=== PATIENT | female | born 1990 | race Caucasian/White ===

== ENCOUNTER 2024-07-12 01:06 | Emergency (ER) | payer OTHER, SELFPAY ==
[2024-07-12 01:18] VITALS: BP 119/78; PULSE 91; RESP 16; TEMP 36.5; O2SAT 96; BMI 23.0
[2024-07-12] MEDS: ONDANSETRON ODT 4 MG TAB PO (02:04)
[2024-07-12] MEDS: 0.9 % SODIUM CHLORIDE 500 ML 500 ML 1000 ML IV (02:04)
--- NOTE | 2024-07-12 02:04 | ED_ITS ---
HPI - General Adult General Chief complaint: Nausea/Vomiting Stated complaint: 5 wks , nauseated Time Seen by Provider: 07/12/24 01:44 Source: patient Mode of arrival: ambulatory Limitations: no limitations History of Present Illness HPI narrative: 33-year-old female presents the ED with 24 hours of nausea vomiting and mild epigastric discomfort. Low-grade fever to 99. Feels slightly chilled. No trauma or injury. Tried using promethazine suppository twice in the last 24 hours but still feels nauseated and is having intermittent vomiting. Does happen to be almost 5 weeks due to IVF. First . Was advised by her gynecology team to come in since she has had vomiting now for 24 hours. She has no major history of abdominal surgery. She had a laparoscopy once for endometriosis inspection but did not have any lysis of adhesions or other major work done. She is not having back pain, hematemesis. Her bowels have been moving normally. There was no bloody stools. She has no dysuria. No gynecological changes. Past medical history is notable for MCAS, and infertility. Reports that her home medications are oral estrogen, topical progesterone, low-dose naltrexone for autoimmune disease and also metformin. Denies any major long-term health problems. ROS is notable for the GI and generalized symptoms as above only, otherwise denies times 12 systems. Related Data Home Medications ?Medication ?Instructions ?Recorded ?Confirmed baby and me 1 pill PO DAILY 07/12/24 07/12/24 cetirizine 10 mg capsule (Zyrtec) 10 mg PO DAILY PRN 07/12/24 07/12/24 famotidine 20 mg tablet 20 mg PO DAILY 07/12/24 07/12/24 metformin 500 mg tablet,extended 1,000 mg PO DAILY 07/12/24 07/12/24 release 24 hr progesterone micronized 200 mg 200 mg PO QPM 07/12/24 07/12/24 capsule Previous Rx's ?Medication ?Instructions ?Recorded ondansetron 4 mg disintegrating 4 mg PO Q6H PRN nausea and 07/12/24 tablet vomiting #20 tabs Allergies Allergy/AdvReac Type Severity Reaction Status Date / Time Penicillins Allergy Mild Verified 07/12/24 02:02 [facility] Medical History (Updated 07/12/24 @ 02:37 by Estrella Godinez MD) Irritable bowel syndrome without diarrhea ?K58.9 - Irritable bowel syndrome, unspecified (ICD-10) 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 - Other specified functional intestinal disorders (ICD-10) Stomach ulcer ?K25.9 - Gastric ulcer, unspecified as acute or chronic, without hemorrhage or perforation (ICD-10) Insulin resistance ?E88.819 - Insulin resistance, unspecified (ICD-10) Hyperandrogenemia ?E28.1 - Androgen excess (ICD-10) Endometriosis determined by laparoscopy ?N80.9 - Endometriosis, unspecified (ICD-10) Asthma ?J45.909 - Unspecified asthma, uncomplicated (ICD-10) Anemia ?D64.9 - Anemia, unspecified (ICD-10) 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 - Mast cell activation, unspecified (ICD-10) Social History Smoking Status: Never smoker Do you use any of these nicotine containing products: None Second hand tobacco smoke exposure: No How often do you have a drink containing alcohol: never AUDIT-C Alcohol total score: 0 Non-prescribed substance use: denies use service: No Exam Const: Vital Signs, click to edit/add: Vital Signs - 24 hr 07/12/24 01:18 Temperature 97.7 F Pulse Rate [Left P ulse Oximeter] 91 Respiratory Rate 16 Blood Pressure [Ri ght Upper Arm] 119/78 Pulse Oximetry 96 Oxygen Delivery Me thod Room Air Documenting provider has reviewed patient's vital signs: yes Common normals: no apparent distress and alert General appearance: well kempt HENMT: Common normals: normocephalic Head and scalp: normocephalic Mouth: oral and palatal mucosa normal Throat: posterior oropharynx normal Eye: Common normals: conjunctivae normal General eye: normal appearance of both eyes Conjunctiva: conjunctiva(e) normal Neck & C-Spine: Common normals: no lymphadenopathy General: normal visual inspection Resp: Common normals: normal respiratory effort, no use of accessory muscles and clear to auscultation bilaterally Effort & inspection: able to speak in complete sentences Auscultation: clear to auscultation bilaterally Cardio: Common normals: regular rate, regular rhythm, S1 normal heart sound, S2 normal heart sound and no murmurs Rate: regular rate Rhythm: regular rh [facility] Heart sounds: S1 normal and S2 normal GI: Common normals: Normal to inspection, nondistended, normoactive bowel so unds present, soft to palpation, non-tender, no hepatosplenomegaly and no masses Palpation: soft and no hepatosplenomegaly Extremity: Common normals: normal to inspection and normal capillary refill Neuro: Sensorium/orientation: alert Speech: speech normal Psych: Appearance: well kempt Attitude: engaged Mood and affect: euthymic mood Insight: insight good Judgement: judgment good Skin: Common normals: no rashes or lesions noted General skin exam: no rashes or lesions noted Course Course ED Course: 24 hours of nausea and vomiting, differential diagnosis most likely gastroenteritis. Cannot exclude, pancreatitis, gallbladder disease, colitis, obstruction, amongst others. But her exam is very reassuring. Counseled patient on options. We both agree that with this early , radiation should be avoided since her exam is reassuring and she and I both feel like this is most likely a case of gastroenteritis. We discussed that illness can increase her chance of miscarriage. We would like to reduce her risk overall. Will give 500 mL of IV fluid. Unfortunately, we are still in IV fluid conservation status due to supply shortage. Will give oral Zofran and oral famotidine. If she tolerates these well, will prescribe a supply for home. Counseled on maintaining oral hydration, slowly advancing diet and typical gastroenteritis advice. Will re-evaluate after medications. Reevaluation(s) Time of Reevaluation #1: 02:50 Reevaluation #1: Patient feeling better after fluid and Zofran. Symptoms most likely consistent with gastroenteritis, we are seeing a lot of this go around in the community. She has not had any diarrhea or return of vomiting here in the ED. discussed pushing fluids. I would recommend that she hold her naltrexone and metformin for a couple of days. Rationale is discussed. She should check in with her OB team tomorrow and update them with how things are going. Alarm symptoms are reviewed that would warrant ED presentation. Prescription for Zofran sent to pharmacy. Risks and benefits of the medication reviewed. Okay to use Tylenol p.r.n. for epigastric discomfort. Okay to continue famotidine. All questions answered, written instructions provided. Vital Signs Vital signs: Initial Vital Signs Temperature 97.7 F 07/12/24 01:18 Temperature Source Temporal Artery Scan 07/12/24 01:18 Pulse Rate 91 07/12/24 01:18 Pulse Rhythm Regular 07/12/24 01:18 Respiratory Rate 16 07/12/24 01:18 Blood Pressure 119/78 07/12/24 01:18 Blood Pressure Mean 91 07/12/24 01:18 Blood Pressure Position Semi-Fowlers 07/12/24 01:18 Pulse Oximetry 96 07/12/24 01:18 Oxygen Delivery Method Room Air 07/12/24 01:18 Vital Signs Temperature 97.7 F 07/12/24 01:18 Pulse Rate 91 07/12/24 01:18 Respiratory Rate 16 07/12/24 01:18 Blood Pressure 119/78 07/12/24 01:18 Pulse Oximetry 96 07/12/24 01:18 Oxygen Delivery Method Room Air 07/12/24 01:18 Temperature 97.7 F 07/12/24 01:18 Pulse Rate 91 07/12/24 01:18 Respiratory Rate 16 07/12/24 01:18 Blood Pressure 119/78 07/12/24 01:18 Pulse Oximetry 96 07/12/24 01:18 Oxygen Delivery Method Room Air 07/12/24 01:18 Medications Administered Medications: Generic Name Dose Route Start Last Admin Trade Name Roney PRN Reason Stop Dose Admin Famotidine 20 mg 07/12/24 01:59 07/12/24 02:05 Famotidine 20 Mg Tablet PO 07/12/24 02:00 Not Given ONCE ONE Sodium Chloride 500 mls @ 1,000 mls/hr 07/12/24 01:59 07/12/24 02:41 0.9 % Sodium Chloride 500 Ml IV 07/12/24 02:28 Infused .Q30M ONE Infusion Ondansetron HCl 4 mg 07/12/24 01:59 07/12/24 02:04 Ondansetron Odt 4 Mg Tab PO 07/12/24 02:00 4 mg ONCE ONE Administration Discharge Plan Discharge Clinical Impression: Gastroenteritis Instructions: Gastroenteritis (DC) Additional Instructions: As we discussed, I do think that your symptoms are consistent with gastroenteritis or the stomach flu. It would be unusual that this would be an early complication but certainly not impossible. I would recommend that you take a couple of days off of the metformin and naltrexone. Naltrexone does have a very long half-life and will stay in your system for a few days. You may continue the suppositories if you find these helpful. I will give you a prescription for Zofran. Try to use this sparingly as we cannot guarantee that any medication is safe in . As we discussed though, dehydration and acute illness are also potentially risky to the . It is my medical opinion that the Zofran is less dangerous than dehydration and acute illness. Continue to push fluids as you are best able. Check in with her gynecology team if things are not improving in 24 hours. High fever, severe pain, bloody stools or other concerning symptoms would warrant emergency room visit. Activity Level: Activity as Tolerated Discharge Diet: Regular Prescriptions: New ondansetron 4 mg tablet,disintegrating 4 mg PO Q6H PRN (Reason: nausea and vomiting) Qty: 20 0RF No Action metformin 500 mg tablet extended release 24 hr 1,000 mg PO DAILY baby and me 1 pill PO DAILY progesterone micronized 200 mg capsule 200 mg PO QPM Zyrtec 10 mg capsule 10 mg PO DAILY PRN famotidine 20 mg tablet 20 mg PO DAILY Follow Up/Referrals: Provider,Not a Local [Primary Care Provider] - Stand Alone Forms: Sw[employer] Info Instructions
--- OUTSIDE RECORDS SUMMARY | 2024-07-12 02:26 | XMS_ITS | Encounter Summary ---
Author Organization [facility] Address [address] [place] [address] Care Team Providers Care Automatic Brine Mixer Operator Name Role Phone Lisa Fortune MD Primary Care Provider Murali Valentin MD Unavailable [phone] Seth Flaherty MD Unavailable [phone] Seth Flaherty MD Unavailable [phone] Lisa Fortune MD Unavailable Seth Flaherty MD Unavailable [phone] Timmy Marrufo CNP Unavailable [phone] Encounter Details Date Type Department Care Team (Late st Contact Info) Description 09/03/2017 [facility] [address] [place] [address] Lisa Fortune MD [address] [place] [address] Social History Tobacco Use Types Packs/Day Years Used Date Smoking Tobacco: Never Smokeless Tobacco: Never Alcohol Use Standard Drinks/Week Comments No 0 (1 standard drink = 0.6 oz pur e alcohol) Comments No Sex and Gender Information Value Date Recorded Sex Assigned at Not on file Legal Sex Female 1:49 PM CDT Gender Identity Not on file Sexual Orientation Not on file documented as of this encounter Plan of Treatment Not on file documented as of this encounter Visit Diagnoses Not on filedocumented in this encounter Care Teams Automatic Brine Mixer Operator Relationship Specialty Start Date End Date Lisa Fortune MD PCP - General Internal Medicine 06/23/16 [place] [address] [place] [address] PCP - Assigned PCP 04/16/18 10/19/18 Murali Valentin MD Neurology 03/11/17 [place] [address] [place] [address] Assigned PCP 04/16/18 02/04/20 Lisa Fortune MD [address] [place] [address] Assigned PCP 02/05/20 07/28/20 [place] [address] [place] [address] Assigned PCP 07/29/20 05/11/21 Timmy Marrufo CNP [address] [place] [address] Nurse Practitioner inseamer 10/29/21 documented as of this encounter
--- OUTSIDE RECORDS SUMMARY | 2024-07-12 02:26 | XMS_ITS | Encounter Summary ---
Author Organization [facility] Address [address] [place] [address] Care Team Providers Care Surface Plate Inspector Name Role Phone Lisa Fortune MD Primary Care Provider Murali Valentin MD Unavailable Seth Flaherty MD Unavailable [phone] Seth Flaherty MD Unavailable [phone] Lisa Fortune MD Unavailable Seth Flaherty MD Unavailable [phone] Timmy Marrufo CNP Unavailable [phone] Encounter Details Date Type Department Care Team (Late st Contact Info) Description 10/05/2017 [facility] Blood and Marrow Transplant Program [address] [address] Gianfranco Blount MD [address] [place] [address] Social History Tobacco Use Types Packs/Day [...] on filedocumented in this encounter Care Teams Surface Plate Inspector Relationship Specialty Start Date End Date Lisa Fortune MD PCP - General Internal Medicine 06/23/16 [place] [address] [place] [address] PCP - Assigned PCP 04/16/18 10/19/18 Murali Valentin MD Neurology 03/11/17 [place] [address] [place] [address] Assigned PCP 04/16/18 02/04/20 Lisa Fortune MD [address] [address] Assigned PCP 02/05/20 07/28/20 [place] [address] [place] [address] Assigned PCP 07/29/20 05/11/21 Timmy Marrufo CNP [address] [place] [address] Nurse Practitioner forging roll operator 10/29/21 documented as of this encounter
--- OUTSIDE RECORDS SUMMARY | 2024-07-12 02:26 | XMS_ITS | Encounter Summary ---
Author Organization [facility] Address [address] [place] [address] Care Team Providers Care Cytotechnologist Supervisor Name Role Phone LogLisa coker MD Primary Care Provider [phone] Gianfranco Blount MD Unavailable Effie Nguyen RN Unavailable [phone] Prabhakar Marino MD Unavailable Murali Valentin MD Unavailable Seth Flaherty MD Unavailable [phone] Seth Flaherty MD Unavailable [phone] Lisa Fortune MD Unavailable Seth Flaherty MD Unavailable [phone] Timmy Marrufo CNP Unavailable [phone] Encounter Details Date Type Department Care Team (Late st Contact Info) Description 02/05/2017 [facility] Blood and Marrow Transplant Program [address] [address] Gianfranco Blount MD [address] [place] [address] Social History Tobacco Use Types Packs/Day Years Used Date Smoking Tobacco: Never Alcohol Use Standard Drinks/Week Comments Not Asked 0 (1 standard drink = 0.6 oz [...] on filedocumented in this encounter Care Teams Cytotechnologist Supervisor Relationship Specialty Start Date End Date Lisa Fortune MD PCP - General Internal Medicine 06/23/16 [place] [address] [place], [place] [id number] PCP - Assigned PCP 04/16/18 10/19/18 Gianfranco Blount MD Consulting Physician Internal Medicine - Hematology 11/14/16 07/01/17 Effie Nguyen, RN Nurse Coordinator Hematology & Oncology 11/14/1607/17 Prabhakar Marino MD [address] [address] Hematology & Oncology 01/14/17 05/17/17 Murali Valentin MD [address] [place] [address] Neurology 03/11/17 [place] [address] [place] [address] Assigned PCP 04/16/18 02/04/20 Lisa Fortune MD [address] [place] [address] [place] [address] Assigned PCP 02/05/20 07/28/20 [place] [address] [place] [address] Assigned PCP 07/29/20 05/11/21 Timmy Marrufo CNP [address] [place] [address] Nurse Practitioner lunchroom mother 10/29/21 documented as of this encounter
--- OUTSIDE RECORDS SUMMARY | 2024-07-12 02:26 | XMS_ITS | Encounter Summary ---
Author Organization [facility] Address [address] [place] [address] Care Team Providers Care Configuration Management Architect Name Role Phone LogLisa coker MD Primary Care Provider [phone] Gianfranco Blount MD Unavailable Effie Nguyen RN Unavailable [phone] Prabhakar Marino MD Unavailable Murali Valentin MD Unavailable Seth Flaherty MD Unavailable [phone] Seth Flaherty MD Unavailable [phone] Lisa Fortune MD Unavailable Seth Flaherty MD Unavailable [phone] Timmy Marrufo CNP Unavailable [phone] Encounter Details Date Type Department Care Team (Late st Contact Info) Description 12/01/2016 [facility] Blood and Marrow Transplant Program [address] [address] Gianfranco Blount MD [address] [place] [address] Social History Tobacco Use Types Packs/Day [...] on filedocumented in this encounter Care Teams Configuration Management Architect Relationship Specialty Start Date End Date Lisa Fortune MD PCP - General Internal Medicine 06/23/16 [place] [address] [place], [place] [id number] PCP - Assigned PCP 04/16/18 10/19/18 Gianfranco Blount MD Consulting Physician Internal Medicine - Hematology 11/14/16 07/01/17 Effie Nguyen, RN Nurse Coordinator Hematology & Oncology 11/14/1607/17 Prabhakar Marino MD [address] [address] Hematology & Oncology 01/14/17 05/17/17 Murali Valentin MD [address] [place] [address] Neurology 03/11/17 [place] [address] [place] [address] Assigned PCP 04/16/18 02/04/20 Lisa Fortune MD [address] [place] [address] [place] [address] Assigned PCP 02/05/20 07/28/20 [place] [address] [place] [address] Assigned PCP 07/29/20 05/11/21 Timmy Marrufo CNP [address] [place] [address] Nurse Practitioner cosmetologist 10/29/21 documented as of this encounter
--- OUTSIDE RECORDS SUMMARY | 2024-07-12 02:26 | XMS_ITS | Encounter Summary ---
Author Organization [facility] Address [address] [place] [address] Care Team Providers Care Green Chain Offbearer Name Role Phone Lisa Fortune MD Primary Care Provider Gianfranco Blount MD Unavailable Effie Nguyen RN Unavailable [phone] Prabhakar Marino MD Unavailable [phone] Murali Valentin MD Unavailable Seth Flaherty MD Unavailable [phone] Seth Flaherty MD Unavailable [phone] Lisa Fortune MD Unavailable Seth Flaherty MD Unavailable [phone] Timmy Marrufo CNP Unavailable [phone] Encounter Details Date Type Department Care Team (Late st Contact Info) Description 04/27/2017 [facility] [address] [address] Lisa Fortune MD [address] [address] Social History Tobacco Use Types Packs/Day [...] on filedocumented in this encounter Care Teams Green Chain Offbearer Relationship Specialty Start Date End Date Lisa Fortune MD PCP - General Internal Medicine 06/23/16 [place] [address] [place], [place] [id number] PCP - Assigned PCP 04/16/18 10/19/18 Gianfranco Blount MD Consulting Physician Internal Medicine - Hematology 11/14/16 07/01/17 Effie Nguyen, RN Nurse Coordinator Hematology & Oncology 11/14/1607/17 Prabhakar Marino MD [address] [place] [address] Hematology & Oncology 01/14/17 05/17/17 Murali Valentin MD [address] [place] [address] Neurology 03/11/17 [place] [address] [place] [address] Assigned PCP 04/16/18 02/04/20 Lisa Fortune MD [address] [address] Assigned PCP 02/05/20 07/28/20 [place] [address] [place] [address] Assigned PCP 07/29/20 05/11/21 Timmy Marrufo, SEBASTIÁN [address] [place] [address] Nurse Practitioner radial saw operator 10/29/21 documented as of this encounter
--- OUTSIDE RECORDS SUMMARY | 2024-07-12 02:26 | XMS_ITS | Encounter Summary ---
Author Organization [facility] Address [address] [place] [address] Care Team Providers Care Stores Assistant Name Role Phone Lisa Fortune MD Primary Care Provider Gianfranco Blount MD Unavailable Effie Nguyen RN Unavailable Prabhakar Marino MD Unavailable [phone] Murali Valentin MD Unavailable [phone] Seth Flaherty MD Unavailable [phone] Seth Flaherty MD Unavailable [phone] Lisa Fortune MD Unavailable Seth Flaherty MD Unavailable [phone] Timmy Marrufo CNP Unavailable [phone] Reason for Visit * Reason Onset Date Comments MyChart Communication 03/20/2017 Encounter Details Date Type Department Care Team (Latest Contact Info) Description 03/20/2017 [facility] [address] [address] Lisa Fortune MD [address] [address] MyChart Communication Social History Tobacco Use Types Packs/Day Years [...] on filedocumented in this encounter Care Teams Stores Assistant Relationship Specialty Start Date End Date Lisa Fortune MD PCP - General Internal Medicine 06/23/16 [place] [address] [place] [address] PCP - Assigned PCP 04/16/18 10/19/18 Gianfranco Blount MD Consulting Physician Internal Medicine - Hematology 11/14/16 07/01/17 Effie Nguyen, RN Nurse Coordinator Hematology & Oncology 11/14/1607/17 Prabhakar Marino MD [address] [place] [address] Hematology & Oncology 01/14/17 05/17/17 Murali Valentin MD [address] [place] [address] Neurology 03/11/17 [place] [address] [place] [address] Assigned PCP 04/16/18 02/04/20 Lisa Fortune MD [address] [address] Assigned PCP 02/05/20 07/28/20 [place] [address] [place] [address] Assigned PCP 07/29/20 05/11/21 Timmy Marrufo CNP [address] [place], [place] [id number] Nurse Practitioner account development executive 10/29/21 documented as of this encounter
--- OUTSIDE RECORDS SUMMARY | 2024-07-12 02:26 | XMS_ITS | Encounter Summary ---
Author Organization [facility] Address [address] [place] [address] Care Team Providers Care Technology Infusion Specialist Name Role Phone Lisa Fortune MD Primary Care Provider [phone] Murali Valentin MD Unavailable [phone] Seth Flaherty MD Unavailable [phone] Seth Flaherty MD Unavailable Lisa Fortune MD Unavailable Seth Flaherty MD Unavailable [phone] Timmy Marrufo CNP Unavailable [phone] Encounter Details Date Type Department Care Team (Late st Contact Info) Description 09/03/2017 [facility] [address] [place] [address] Lisa Fortune MD [address] [place] [address] Social History Tobacco Use Types Packs/Day [...] on filedocumented in this encounter Care Teams Technology Infusion Specialist Relationship Specialty Start Date End Date Lisa Fortune MD PCP - General Internal Medicine 06/23/16 [place] [address] [place] [address] PCP - Assigned PCP 04/16/18 10/19/18 Murali Valentin MD Neurology 03/11/17 [place] [address] [place] [address] Assigned PCP 04/16/18 02/04/20 Lisa Fortune MD [address] [place] [address] Assigned PCP 02/05/20 07/28/20 [place] [address] [place] [address] Assigned PCP 07/29/20 05/11/21 Timmy Marrufo CNP [address] [place] [address] Nurse Practitioner interchange agent 10/29/21 documented as of this encounter
--- OUTSIDE RECORDS SUMMARY | 2024-07-12 02:26 | XMS_ITS | Encounter Summary ---
Author Organization [facility] Address [address] [place] [address] Care Team Providers Care Production Officer Name Role Phone LogLisa coker MD Primary Care Provider Gianfranco Blount MD Unavailable Effie Nguyen RN Unavailable [phone] Prabhakar Marino MD Unavailable Murali Valentin MD Unavailable [phone] Seth Flaherty MD Unavailable [phone] Seth Flaherty MD Unavailable [phone] Lisa Fortune MD Unavailable Seth Flaherty MD Unavailable [phone] Timmy Marrufo CNP Unavailable [phone] Encounter Details Date Type Department Care Team (Late st Contact Info) Description 12/10/2016 [facility] Program [address] [address] Gianfranco Blount MD [address] [place] [address] Social History Tobacco Use Types Packs/Day [...] on filedocumented in this encounter Care Teams Production Officer Relationship Specialty Start Date End Date Lisa Fortune MD PCP - General Internal Medicine 06/23/16 [place] [address] [place], [place] [id number] PCP - Assigned PCP 04/16/18 10/19/18 Gianfranco Blount MD Consulting Physician Internal Medicine - Hematology 11/14/16 07/01/17 Effie Nguyen, RN Nurse Coordinator Hematology & Oncology 11/14/1607/17 Prabhakar Marino MD [address] [address] Hematology & Oncology 01/14/17 05/17/17 Murali Valentin MD [address] [place] [address] Neurology 03/11/17 [place] [address] [place] [address] Assigned PCP 04/16/18 02/04/20 Lisa Fortune MD [address] [place] [address] [place] [address] Assigned PCP 02/05/20 07/28/20 [place] [address] [place] [address] Assigned PCP 07/29/20 05/11/21 Timmy Marrufo CNP [address] [place] [address] Nurse Practitioner lay out helper 10/29/21 documented as of this encounter
--- OUTSIDE RECORDS SUMMARY | 2024-07-12 02:26 | XMS_ITS | Encounter Summary ---
Author Organization [facility] Address [address] [place] [address] Care Team Providers Care [place] Attendant Name Role Phone LogLisa coker MD Primary Care Provider [phone] Gianfranco Blount MD Unavailable [phone] Effie Nguyen RN Unavailable [phone] Prabhakar Marino MD Unavailable Murali Valentin MD Unavailable [phone] Seth Flaherty MD Unavailable [phone] Seth Flaherty MD Unavailable [phone] Lisa Fortune MD Unavailable Seth Flaherty MD Unavailable [phone] Timmy Marrufo CNP Unavailable [phone] Encounter Details Date Type Department Care Team (Late st Contact Info) Description 02/24/2017 [facility] Blood and Marrow Transplant Program [address] [address] Gianfranco Blount MD [address] [place] [address] Social History Tobacco Use Types Packs/Day [...] on filedocumented in this encounter Care Teams [place] Attendant Relationship Specialty Start Date End Date Lisa Fortune MD PCP - General Internal Medicine 06/23/16 [place] [address] [place], [place] [id number] PCP - Assigned PCP 04/16/18 10/19/18 Gianfranco Blount MD Consulting Physician Internal Medicine - Hematology 11/14/16 07/01/17 Effie Nguyen, RN Nurse Coordinator Hematology & Oncology 11/14/1607/17 Prabhakar Marino MD [address] [address] Hematology & Oncology 01/14/17 05/17/17 Murali Valentin MD [address] [place] [address] Neurology 03/11/17 [place] [address] [place] [address] Assigned PCP 04/16/18 02/04/20 Lisa Fortune MD [address] [place] [address] Assigned PCP 02/05/20 07/28/20 [place] [address] [place] [address] Assigned PCP 07/29/20 05/11/21 Timmy Marrufo CNP [address] [place] [address] Nurse Practitioner critical care unit nurse 10/29/21 documented as of this encounter
--- OUTSIDE RECORDS SUMMARY | 2024-07-12 02:26 | XMS_ITS | Encounter Summary ---
Author Organization [facility] Address [address] [place] [address] Care Team Providers Care Ceramic Engineering Professor Name Role Phone Lisa Fortune MD Primary Care Provider Murali Valentin MD Unavailable Seth Flaherty MD Unavailable [phone] Seth Flaherty MD Unavailable [phone] Lisa Fortune MD Unavailable Seth Flaherty MD Unavailable [phone] Timmy Marrufo CNP Unavailable [phone] Encounter Details Date Type Department Care Team (Late st Contact Info) Description 05/03/2018 [facility] Program [address] [address] Gianfranco Blount MD [address] [place] [address] Social History Tobacco Use Types Packs/Day [...] on filedocumented in this encounter Care Teams Ceramic Engineering Professor Relationship Specialty Start Date End Date Lisa Fortune MD PCP - General Internal Medicine 06/23/16 [place] [address] [place] [address] PCP - Assigned PCP 04/16/18 10/19/18 Murali Valentin MD Neurology 03/11/17 [place] [address] [place] [address] Assigned PCP 04/16/18 02/04/20 Lisa Fortune MD [address] [address] Assigned PCP 02/05/20 07/28/20 [place] [address] [place] [address] Assigned PCP 07/29/20 05/11/21 Timmy Marrufo CNP [address] [place] [address] Nurse Practitioner rib builder 10/29/21 documented as of this encounter
--- OUTSIDE RECORDS SUMMARY | 2024-07-12 02:26 | XMS_ITS | Continuity of Care Document ---
Author Organization [facility] Address [address] [address] [place] [address] Phone Care Team Providers Care Bed And Breakfast Cook Name Role Phone Marshal Singer MD Unavailable Unavailable Allergies, Adverse Reactions, Alerts Substance Reaction Status Criticality adhesive tape Rash Active No Information PENICILLIN Rash Active No Information latex Rash Active No Information egg Active No Information lactose Active No Information gluten Active No Information Penicillins Active No Information Medications Medication Instructions Dosage Effective Dates (start - stop) Status Comments nortriptyline 10 mg capsule take 1 Capsule by oral route every bedtime 10 MG - Active Pepcid AC 20 mg tablet take 1 tablet by oral route 2 times every day as needed 20 MG - Active Zyrtec 10 mg tablet take 1 tablet by oral route every day 10 MG - Active cabergoline 0.5 mg tablet take 0.5 tablet by oral route every week 0.25 MG - Active Lotrexone 1.5 mg capsule - Active dicyclomine 10 mg capsule take 1 capsule by oral route 4 times every day as needed. No more than 40 mg per day when . - Active Zofran 4 mg tablet take 1 tablet by ORAL route every 8 hours as needed for nausea 4 MG - Active nortriptyline 10 mg capsule take 1 Capsule by oral route every bedtime 10 MG - No Longer Active Procedures Procedure Date Established Level 3 Established Level 3 Established Level 3 Established Level 3 or 15-24 min 2019 Offic/outpt E&m Estab Low-mod 8 Offic/outpt E&m Estab Mod-hi 4 17 Offic/outpt E&m Estab Mod-hi 4 16 Routine Serum Collection Gg; Iga, Igd, Igg, Igm, Ea Bld Ct; Hgb Medical Nutrition Therapy, subs, each 15 minutes Medical nutrition therapy, initial, each 15 minutes Offic/outpt E&m Estab Mod-hi 4 16 Breath Test Fructose Breath Test Lactose Breath Test Glucose Breath Kit Given Offic/outpt E&m Estab Low-mod 6 Offic/outpt E&m Estab Low-mod 5 Offic/outpt E&m Estab Low-mod 5 Robertson PH Monitor Robertson Placement Routine Serum Collection Bld Ct; Hg/pltlt Ct Auto/compl 15 Comp Metabolic Panel Lipase Offic/outpt E&m Estab Mod-hi 2 15 Ugi Endo; W/bx 1/mx Level Iv-surg Path Gross/micro 15 Advance Directives Directive Yes / No Effective Date File Name No Information Encounters Encounter Description Practice Location Reason(s) For Visit Diagnoses Date Provider Providers Copied on Encounter Established Level 3 [facility], [address] [address], [place], [id number], [place] tel:[phone] [facility] GI Symptoms or Concerns (chief complaint) Irritable bowel syndrome with constipation 4 Enmanuel Araya. [address] [facility], [address], [place], [id number], [place]. tel:[phone] Referring Provider: Referral Self, USE FOR SELF REFERRALS. Established Level 3 [facility], [address] [address], [place], [id number], [place] tel:[phone] [facility] GI Symptoms or Concerns (chief complaint) Irritable bowel syndrome with diarrhea 3 Eunice Howe. [address] [facility], [address], [place], [id number], [place]. tel:[phone] Referring Provider: Referral Self, USE FOR SELF REFERRALS. Established Level 3 [facility], [address] [address], [place], [id number], [place] tel:[phone] [facility] GI Symptoms or Concerns (chief complaint) Irritable bowel syndrome with diarrhea 2 Jalen Velazco. [address] [facility], [address], [place], [id number], [place]. tel:[phone] Referring Provider: Referral Self, USE FOR SELF REFERRALS. [facility], [address] [address], [place], [id number], [place] tel:[phone] [facility] No Information 2 Celestine Mccain. [address] [facility], [address], [place], [id number], [place]. tel:[phone] Established Level 3 or 15-24 min [facility], [address] [address], [place], [id number], [place] tel:[phone] [facility] GI Symptoms or Concerns (chief complaint) Nausea and vomiting, intractability of vomiting not specified, unspecified vomiting typeIrritable bowel syndrome with diarrhea 0 WILFREDorsuzy PAC Mora. [address] [facility], [address], [place], [id number], [place]. tel:[phone] Referring Provider: Referral Self, USE FOR SELF REFERRALS. Offic/outpt E&m Estab Low-mod [facility], [address] [address], [place], [id number], [place] tel:[phone] [facility] GI Symptoms or Concerns (chief complaint) Generalized abdominal painDyspepsiaNause a and vomiting, intractability of vomiting not specified, unspecified vomiting type 8 Jalen Velazco. [address] [facility], [facility] [address], [place], [place], [id number], [place]. tel:[phone] Referring Provider: Lisa Fortune MD, [address] [place] [address], [place], [address]. tel:[phone] Offic/outpt E&m Estab Mod-hi 4 [facility], [address] [address], [place], [place], [id number], [place] tel:[phone] [facility] GI Symptoms or Concerns (chief complaint) Irritable bowel syndrome with constipationDietar y counseling and surveillance 7 Mike Jimenez. [address] [facility], [facility] [address], [place], [address], [place]. tel:[phone] Referring Provider: Referral Self, USE FOR SELF REFERRALS. Offic/outpt E&m Estab Mod-hi 4 [facility], [address] [address], [place], [place], [id number], [place] tel:[phone] [facility] GI Symptoms or Concerns (chief complaint) Abdominal pain, unspecified locationBloatingCo nstipation, unspecified constipation typeDietary counseling and surveillance 6 Mike Jimenez. [address] [facility], [facility] [address], [place], [place], [id number], [place]. tel:[phone] Referring Provider: Referral Self, USE FOR SELF REFERRALS. [facility], [address] [address], [place], [place], [id number], [place] tel:[phone] [facility] Bloating 6 Sheldon Hilario. [address] [facility], [facility] [address], [place], [id number], [place]. tel:[phone] Referring Provider: Estela Panda MD, [address], [place], [address]. tel:[phone] [facility], [address] [address], [place], [place], [id number], [place] tel:[phone] [facility] Bloating 0201 6 Sheldon Hilario. [address] [facility], [address], [place], [place], [id number], [place]. tel:[phone] Referring Provider: Estela Panda MD, [address], [place], [address]. tel:[phone] [facility], [address] [address], [place], [id number], [place] tel:[phone] [facility] Bloating 6201 6 Mike Jimenez. [address] [facility], [facility] [address], [place], [place], [id number], [place]. tel:[phone] Referring Provider: Referral Self, USE FOR SELF REFERRALS. Offic/outpt E&m Estab Mod-hi 4 [facility], [address] [address], [place], [place], [id number], [place] tel:[phone] [facility] GI Symptoms or Concerns (chief complaint) Bloating 4201 6 Mike Jimenez. [address] [facility], [facility] [address], [place], [place], [id number], [place]. tel:[phone] Referring Provider: Estela Panda MD, [address] [facility] [address], [place], [address]. tel:[phone] [facility], [address] [address], [place], [id number], [place] tel:[phone] [facility] Abdominal distension (gaseous) 3-201 6 Rock Wiggins. [address] [facility], [facility] [address], [place], [place], [id number], [place]. tel:[phone] Referring Provider: Referral Self, USE FOR SELF REFERRALS. [facility], [address] [address], [place], [id number], [place] tel:[phone] [facility] Abdominal distension (gaseous) Nov-0 5201 6 Rock [employer]ICER Rosalie. [address] [facility], [address], [place], [place], [id number], [place]. tel:[phone] [facility], [address] [address], [place], [id number], [place] tel:[phone] [facility] Abdominal distension (gaseous) Oct-3 0-201 6 Rock [employer] Rosalie. [address] [facility], [address], [place], [id number], [place]. tel:[phone] [facility], [address] [address], [place], [id number], [place] tel:[phone] [facility] No Information Oct-0 4 6 Rock [employer]ER Rosalie. [address] [facility], [address], [place], [id number], [place]. tel:[phone] Referring Provider: Referral Self, USE FOR SELF REFERRALS. [facility], [address] [address], [place], [id number], [place] tel:[phone] [facility] Bloating Oct-0 3201 6 Rock [employer] Rosalie. [address] [facility], [address], [place], [address], [place]. tel:[phone] Referring Provider: Referral Self, USE FOR SELF REFERRALS. Offic/outpt E&m Estab Low-mod [facility], [address] [address], [place], [id number], [place] tel:[phone] [facility] GI Symptoms or Concerns (chief complaint) DyspepsiaIrritable bowel syndrome with diarrhea 6 Rock [employer]ER Rosalie. [address] [facility], [address], [place], [place], [id number], [place]. tel:[phone] Referring Provider: Estela Panda MD, [address], [place], [address]. tel:[phone] Offic/outpt E&m Estab Low-mod [facility], [address] [address], [place], [address], [place] tel:[phone] [facility] GI Symptoms or Concerns (chief complaint) Epigastric painDyspepsia 5 Rock Wiggins. [address] [facility], [address], [place], [id number], [place]. tel:[phone] Referring Provider: Estela Panda MD, [address], [place], [address]. tel:[phone] Offic/outpt E&m Estab Low-mod [facility], [address] [address], [place], [id number], [place] tel:[phone] [facility] GI Symptoms or Concerns (chief complaint) HeartburnAbd Pain GeneralizedDiarrhe a 5 Rock Wiggins. [address] [facility], [address], [place], [place], [id number], [place]. tel:[phone] Referring Provider: Estela Panda MD, [address] [facility] [address], [place], [address]. tel:[phone] [facility], [address] [address], [place], [id number], [place] tel:[phone] [facility] No Information 5 Pernell Neff. [address] [facility], [address], [place], [place], [address], [place]. tel:[phone] [facility], [address] [address], [place], [address], [place] tel:[phone] [facility] No Information 5 Vicente Chávez. [address] [facility], [address], [place], [place], [address], [place]. tel:[phone] Referring Provider: Estela Panda MD, [address] [facility] [address], [place], [address]. tel:[phone] [facility], [address] [address], [place], [id number], [place] tel:[phone] [facility] No Information 5 Clotilde Becker. [address] [facility], [facility] [address], [place], [id number], [place]. tel:[phone] Referring Provider: Estela Panda MD, [facility] [facility] [address], [place], [address]. tel:[phone] Offic/outpt E&m Estab Mod-hi 2 [facility], [address] [address], [place], [id number], [place] tel:[phone] [facility] GI Symptoms or Concerns (chief complaint) HeartburnNausea 5 Clotilde Becker. [address] [facility], [facility] [address], [place], [id number], [place]. tel:[phone] Referring Provider: Referral Self, USE FOR SELF REFERRALS. [facility], [address] [address], [place], [id number], [place] tel:[phone] [facility] HeartburnHeartburn GERD 5 Clotilde Becker. [facility], [facility] [address], [place], [id number], [place]. tel:[phone] Referring Provider: Referral Self, USE FOR SELF REFERRALS. Family History Family Member Type Diagnosis Age At Onset Father Problem (finding) peptic ulceration Brother Problem (finding) Alive and well Father Problem (finding) Thyroid disorder Sister Problem (finding) Alive and well Mother Problem (finding) Alive and well Immunizations Vaccine Date Status Comments tetanus toxoid, reduced diphtheria toxoid, and acellular pertussis vaccine, adsorbed administered Note: [facility] bi-direct ional interface ; Source: Other Registry Afluria Qd administered Note: M [facility] bi-directional interface ; Source: Other Registry Influenza, injectable, quadrivalent, preservative free, 3 yrs or older administered Source: Other Provi aleyda Influenza virus vaccine, injectable, quadrivalent, split virus, preservative free, 3 years or older Fluarix Quad administered Source: Other Provid er Afluria Qd administered Note: M [facility] bi-directional interface ; Source: Other Registry Influenza virus vaccine, injectable, quadrivalent, split virus, preservative free, 3 years or older Fluarix, Flulaval or Fluzone Quad administered Note: Invalid docume nted admin date was . ; Source: Other Provider Afluria Qd administered Note: [facility] bi-directional interface ; Source: Other Registry Influenza, seasonal, injectable administe red Note: [facility] bi- directional interface ; Source: Other Registry tetanus toxoid, reduced diphtheria toxoid, and acellular pertussis vaccine, adsorbed administered Note: [facility] bi-direct ional interface ; Source: Other Registry Payers Payer name Insurance type Covered alliance party ID Authoriza tion(s) No Information Social History Type Description Quantity Date Captured Comments Alcohol Use Details Unknown Caffeine Use Details Unknown Tobacco Use Status No Information Smoking Status undefined Sex Female Vital Signs Date / Time: Height Weight BMI Pulse Rate Blood Pressure Temperature Respiratory Rate Body Surface Area Head Circumference Head Circ. Percentile Wt./Ruben. Percentile BMI percentile Pulse Ox Inhaled Ox 1:52 PM 62.00 in 64.864 kg (143.00 lbs) 26.1 5 kg/m eter (2) Chief Complaint And Reason For Visit From encounter dated '12/25/2023 13:52'. GI Symptoms or Concerns (chief complaint). Description: Flaca consented to a virtual visit. We were alone on the line together. We spoke for 10 min and I spent an additional 10 min reviewing med records and coordinating care. The level of clinical decision making was moderate.Flaca is a 33-year-old woman with history of irritable bowel syndrome, functional dyspepsia, nausea and vomiting who Ihad a follow-up video visit with today for ongoing management of her symptoms. She reports that overall she is doing pretty well. She continues to take nortriptyline 10 milligrams at bedtime and thatdoes a good job of controlling symptoms for the most part. She has tried stopping it in the past on several occasions and had symptoms return. Paradoxically she get's constipated off of nortriptyline and on it she can make 2-4 BMs per day and feels well.Will be starting metforming and is onnaltrexone for diffuse inflammationInterested in stopping nortriptyline again andasks how to do that. Reason For Referral Reason For Referral No Information Plan Of Treatment Date Type Action Status Goal Lifestyle education regardin g diet completed Goal Lifestyle education regardin g diet completed Referral Ordered: follow-up visit with family counselor ordered Referral Ordered: referred to [facility] Dyspepsia associated w anxiety Appointment date/timeframe: 07/18/2015 ordered Referral Ordered: Ultrasound Abdomen Appointment date/timeframe: 02/05/2015 ordered History Of Present Illness Encounter Date Complaint History Of Prese nt Illness GI Symptoms or Concerns Flaca consented to a virtual visit. We were alone on the line together. We spoke for 10 min and I spent an additional 10 min reviewing med records and coordinating care. The level of clinical decision making was moderate.Flaca is a 33-year-old woman with history of irritable bowel syndrome, functional dyspepsia, nausea and vomiting who I had a follow-up video visit with today for ongoing management of her symptoms. She reports that overall she is doing pretty well. She continues to take nortriptyline 10 milligrams at bedtime and that does a good job of controlling symptoms for the most part. She has tried stopping it in the past on several occasions and had symptoms return. Paradoxically she get's constipated off of nortriptyline and on it she can make 2-4 BMs per day and feels well.Will be starting metforming and is on naltrexone for diffuse inflammationInterested in stopping nortriptyline again and asks how to do that. GI Symptoms or Concerns Flaca is a 32-year-old woman with history of irritable bowel syndrome, functional dyspepsia, nausea and vomiting who I had a follow-up video visit with today for ongoing management of her symptoms. She reports that overall she is doing pretty well. She continues to take nortriptyline 10 milligrams at bedtime and that does a good job of controlling symptoms for the most part. She did try going off of it last year after seeing us in clinic however she notes that pain became worse and she developed constipation symptoms and so resumed it. With this, she generally has 3-4 formed stools per day. Unfortunately, she reports that she was having some lower GI symptoms characterized by bloating in the recent past but she was also having a miscarriage at that time. Those symptoms did resolve after her miscarriage. GI Symptoms or Concerns Flaca Mckenzie is a pleasant 31-year-old female with history of irritable bowel syndrome with predominant diarrhea, functional dyspepsia, nausea, and vomiting, who presents today in followup.The patient was last seen in June 2020. At that time, she had been recovering from COVID and had significant GI symptoms along with her COVID infection. This included abdominal pain, nausea, vomiting, and diarrhea. She was started on nortriptyline 10 mg after her visit in June 2020. The patient reports that since that time she has remarkably had no GI symptoms. She denies any nausea or vomiting. No abdominal pain. She is having regular bowel movements approximately 1 to 2 bowel movements per day. She notes no symptoms for almost 2 years.She is hoping to become in the coming months. She was speaking with her RECONCILIATION COORDINATOR and they were discussing if nortriptyline could be stopped.The patient's GI history includes an upper endoscopy in 2014, which was normal. Unremark GI Symptoms or Concerns Flaca Mckenzie is a 29-year-old female with medical history of irritable bowel syndrome, functional dyspepsia, nausea and vomiting, and abdominal pain, who is following up in clinic for evaluation of nausea, vomiting, and abdominal pain.The patient was last seen in 2017. At that time, she had these exact similar symptoms and has been struggling with them for the past 7 to 8 years. The patient tells me that she was diagnosed with COVID-19 two weeks ago. When she had COVID, she developed a fever, chills, abdominal pain, nausea, vomiting, and diarrhea. She has been slowly recovering over the past 2 weeks. She notes that she is now able to eat food and stay better hydrated. Her bowel movements are now formed. She, however, is still struggling with some nausea, primarily in the mornings. Fortunately, she is able to eat smaller meals throughout the day. 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 At that time, she had these exact similar symptoms and has been struggling with them for the past 7 to 8 years. The patient tells me that she was diagnosed with COVID-19 two weeks ago. When she had COVID, she developed a fever, chills, abdominal pain, nausea, vomiting, and diarrhea. She has been slowly recovering over the past 2 weeks. She notes that she is now able to eat food and stay better hydrated. Her bowel movements are now formed. She, however, is still struggling with some nausea, primarily in the mornings. Fortunately, she is able to eat smaller meals throughout the day. 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 in 2014. She has had some form of GI symptoms over the past 5 years. She reports today that she has abdominal pain throughout her abdomen. Occasionally, this will focus on her epigastric area. She sites that nausea comes on in the mornings with few episodes of vomiting. This then resolves and she is able to make it through her day as well as eating meals without any symptoms of nausea or vomiting. Her abdominal pain are fairly chronically. In the past, she has struggled with constipation. She was even on Linzess at one time, but cited that Linzess caused her stool to be too loose. She is not currently using any GI medicines. She says she was u GI Symptoms or Concerns Flaca Richards is a 26-year-old female who presents to the [facility] for ongoing management of functional dyspepsia, constipation, and bloating. She is currently taking Benefiber three times daily. Miralax at night and Benefiber in the morning. She has also eliminated sugar from her diet. She uses dicyclomine before lunch, dinner, and bedtime which seems to have helped a lot too. She is having bowel movements daily, but continues to have some feelings of incomplete evacuation. She has tried to increase the dicyclomine before breakfast as well which she feels has caused increased abdominal cramping. When seen in the clinic on 06/12/2016, she was describing her quality of life 4 out of 10 that was before dicyclomine, now a 6 out of 10. Our goal is an 8 out of 10. Amitriptyline has been increased to 100 mg per day. She continues to follow with Psychiatry at [facility]. She is on BuSpar 50 mg three times daily as well. She feels that her anxiety is doing well. Prior to dicyclomine, she was also having vomiting every other day.She does report previously being diagnosed with celiac disease and follows a gluten free diet. She also follows a low FODMAP diet and has met with a dietitian. She has been gaining weight. She works out frequently and feels her bloating is worse the day after exercise. Hemoglobin, IgA and celiac panel were all checked when she was seen in the clinic on 06/17/2016 which were all within acceptable ranges. 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 She reports some bloating and gas with milk. She had a positive glucose breath test and has been treated with rifaximin three times with minimal change in her symptoms. EGD in January of 2015 was normal aside from patulous GE junction. Esophageal biopsies were normal. Abdominal ultrasound in January of 2015 was normal. Robertson pH studies in February of 2015 was normal. Previous use of Gas-X which caused nausea and vomiting. She inquires about increasing the dicyclomine and the MiraLax since these two seemed to be helping, but still with some incomplete evacuation. GI Symptoms or Concerns Flaca is a 25year old female with a history of functional dyspepsia, constipation and bloating presenting for follow up. She is currently taking Benefiber three times daily, Miralax one capful daily, and amitryptiline 75mg. She reports that he dyspepsia has completely resolved. Her bloating has been very troublesome for her and is worse with stress and before bedtime. It is relieved with passing gas, but takes a long time to do so. She reports hr quality of life at 4/10 with a goal of 8/10. She has about 3 formed bowel movements per day, often with straining. Usually towards the end of the day she feels like there is inadequate emptying. She denies any diarrhea, nausea, vomiting, abdominal pain, weight loss, or hematochezia. She does endorse black tarry stools about weekly.She does report previously diagnosed Celiac disease and follows a gluten free diet. She also follows a low FODMAP diet and has met with a family counselor. She works out frequently and feels that her bloating is worsened the day after exercise.She follows with a psychiatrist at [facility] and feels that her anxiety is well controlled. She is on Busbar 15mg three times daily.She has had breath testing with negative lactose and fructose testing. She reported more bloating and gas with milk though. she had a positive glucose breath test and has been treated with rifaximin 3 times with minimal change in symptoms. EGD on 01/2015 was normal aside from a subjectively patulous GE junction. Esophageal biopsies were normal. Abdominal ultrasound 01/2015 was normal. Robertson pH study 02/2015 was normal. She has been on dicyclomine and levsin without change. She has tried Gas X which caused nausea and vomiting.PETER Foster-Amelia patientwas seen in conjunction with Catherine Mckeon NP GI Symptoms or Concerns This is a 25-year-old woman who returns to clinic for followup regarding irritable bowel syndrome with symptoms of nausea and bloating. She has a long history of intermittent burning epigastric and chest pain as well as nausea and vomiting. Her symptoms are clearly exacerbated with stress. She has alternating bowel pattern between constipation and diarrhea.Symptoms have slowly been improving with antidepressant therapy. she has been under the care of psychiatry recently. Prozac was stopped. she has been on amitriptyline with recent increase in dose to 75 mg at bedtime and buspar. she is having less abdominal discomfort and nausea with vomiting has resolved. she recently underwent breath testing with negative lactose and fructose testing. she reports more bloating and gas with milk though. she had a positive glucose breath test and started on rifaximin with no change in symptoms. bowel movements are every day most daily with small to normal size stools. the bloating improves with bowel movement. she still has problems when she lies down for bed, she will have to sit up to [facility]. January 2015 EGD was normal aside from a subjectively patulous GE junction. Esophageal biopsies were normal. January 2015 abdominal ultrasound was normal. February 2015 Robertson pH study was normal. she has been on dicyclomine and levsin without change. She has been following with [facility] for acupuncture, which helps minimally. Her primary provider also recently referred her to a psychiatrist for further medication management.She is on a strict gluten-free diet. She feels her diet is very high in fiber, and she is not taking a fiber supplement. GI Symptoms or Concerns This is a 24-year-old woman who returns to clinic for followup regarding irritable bowel syndrome. She was last seen in clinic in May 2015, at which time she was doing well. She has a long history of intermittent burning epigastric and chest pain as well as nausea and vomiting. Her symptoms are clearly exacerbated with stress. She has alternating bowel pattern between constipation and diarrhea.January 2015 EGD was normal aside from a subjectively patulous GE junction. Esophageal biopsies were normal. January 2015 abdominal ultrasound was normal. February 2015 Robertson pH study was normal. She was then started on amitriptyline 25 mg daily, which was increased to 50 mg daily. Prior trials of Levsin helped with fecal urgency and loose stools, but not as much with her abdominal pain.She was started on Prozac last fall, which initially did help with her GI symptoms. This was causing a rapid heart rate, and the dose was decreased to 10 mg in July 2015. She has been able to hector GI Symptoms or Concerns This is a 24-year old woman who returns to clinic for followup regarding dyspepsia. She has a history of intermittent burning epigastric and chest pain as well as nausea and vomiting dating back since she was a asndra in high school. Symptoms tend to be worse with stress. She has alternating bowel pattern between constipation and diarrhea. Her GI symptoms are strongly correlated with increased stress and anxiety.Previous GI workup has included EGD in January 2015, which was normal aside from a subjectively patulous GE junction. Esophageal biopsies were normal. January 2015 abdominal ultrasound was normal. February 2015 Robertson pH study was normal. She was started on amitriptyline 25 mg once daily and then the dose was increased to 50 mg daily. She has also been tried on Levsin which has helped with fecal urgency and loose stools, but not as much with abdominal pain. Her primary provider started her on Prozac about one month ago, which has been helpful overall with her GI symptoms. GI Symptoms or Concerns This is a 24-year-old woman who returns to clinic for followup.She has a history of intermittent burning abdominal and chest pain as well as nausea and vomiting dating back since she was a sandra in high school. She describes generalized abdominal pain that radiates up into her chest. She has had problems with nausea and intermittent vomiting. The bowel pattern has alternated between constipation and diarrhea, though most of the time she reports loose stools. She has a strong association with increase in GI symptoms with increased stress and anxiety.She was referred for EGD, which was done on 01/15/2015. This exam was normal aside from a subjectively patulous GE junction. Esophageal biopsies were normal. Abdominal ultrasound done in January was normal. She then had Robertson pH study, which was normal. She was started on amitriptyline 25 mg once daily in January. This was helpful for the first two weeks, during which time she had no GI symptoms. Around the third week, she start GI Symptoms or Concerns This you ng woman is seen today for heartburn and intermittent nausea and vomiting. This has been a problem for her going back until she was a sandra in high school. She frequently gets a burning sensation in her chest that radiates all the way up in the back of her throat. She occasionally gets nauseous especially at night. Sometime she can have some vomiting associated with this. She denies significant diarrhea though does have some loose stools on occasion. Triggers for her symptoms include spicy foods and acidic foods. She denies any dysphagia.She has tried Prilosec and she takes 20 mg b.i.d. She gets some sweating and fever and sometimes it makes her symptoms worse. She has tried Zantac and four years ago was on Prevacid.Notably stress tends to be a trigger for her symptoms on a regular occasion. When she is under stress, all of her symptoms are worse. Functional Status Date Functional Assessmen t No Information Instructions Date Instruction Additional Infor keo -Will refill nortrip tyline, but OK to try taper off. Instructions given.Follow up as neededRed flag symptoms reviewed. Related to Irritable bowel syndrome with constipation I will send in a yea r supply of the nortriptyline 10 milligrams at bedtime. I will also send in a prescription for dicyclomine. You can take 10 milligrams up to 4 times per day as needed for severe abdominal pains. During , you should limit the dose to no more than 40 milligrams in a day. If you do not respond to the 10 milligram dose, you can take up to 20 milligrams at a time. Follow-up with Mora Rao in 1 year. Related to Irritable bowel syndrome with diarrhea Increase miralax to one capful daily on , , thu, thu. Two capfuls thu, thu, thu. You can adjust for bowel regulation. Increase dicyclomine to 20 mg before lunch dinner and bedtime. CAll if tolerating and I will send in a prescription for a 20 mg tabletContinue follow up with psychiatry on buspar and amitriptyline. CAll with questions or concerns. continue low sugar diet. Related to Irritable bowel syndrome with constipation Lifestyle education regarding di et Related to Dietary counseling and surveillance Increase Miralax to 1 capful Thursday, , Thursday and Thursday. Two capfuls Thursday, Thursday, Thursday . If needed increase to two capfuls daily. Continue the Benefiber dailyBuspar 15 mg three times daily, Amitriptyline 75 mg dailyIf still with problems after two weeks would bowel cleanse and start Linzess 145 mcg. Call me with symptom update or if you do not tolerate higher doses. Continue gluten free diet. Related to Abdominal pain, unspecified location Lifestyle education regarding di et Related to Dietary counseling and surveillance start a fiber supple ment daily such as benefiber or citrucelstart miralax every other day, increase to daily if able. if stools too loose then decrease to two times per week. if constipation symptoms occur or bloating worsens after starting the miralax that means you are really constipated. take a bottle of magnesium citrate and resume miralax. continue buspar and amitriptyline as you are. dietary fiber of 20 to 25 g per dayfollow up with family counselor if ongoing symptoms. complete rifaximin. if symptoms return off the rifaximin then call and i will retreat. 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 Patient Care Teams Name Effective Dates (start - stop) Status Members No Information
--- OUTSIDE RECORDS SUMMARY | 2024-07-12 02:26 | XMS_ITS | Encounter Summary ---
Author Organization [facility] Address [address] [place] [address] Care Team Providers Care Electronic Gluing Machine Operator Name Role Phone LogLisa coker MD Primary Care Provider Gianfranco Blount MD Unavailable Effie Nguyen RN Unavailable [phone] Prabhakar Marino MD Unavailable Murali Valentin MD Unavailable [phone] Seth Flaherty MD Unavailable [phone] Seth Flaherty MD Unavailable [phone] Lisa Fortune MD Unavailable Seth Flaherty MD Unavailable [phone] Timmy Marrufo CNP Unavailable [phone] Encounter Details Date Type Department Care Team (Late st Contact Info) Description 04/20/2017 [facility] Mar[facility] Trans[facility] [address] [address] Gianfranco Blount MD [address] [place] [address] Social History Tobacco Use Types Packs/Day [...] on filedocumented in this encounter Care Teams Electronic Gluing Machine Operator Relationship Specialty Start Date End Date Lisa Fortune MD PCP - General Internal Medicine 06/23/16 [place] [address] [place], [place] [id number] PCP - Assigned PCP 04/16/18 10/19/18 Gianfranco Blount MD Consulting Physician Internal Medicine - Hematology 11/14/16 07/01/17 Effie Nguyen, RN Nurse Coordinator Hematology & Oncology 11/14/1607/17 Prabhakar Marino MD [address] [place] [address] Hematology & Oncology 01/14/17 05/17/17 Murali Valentin MD [address] [address] Neurology 03/11/17 [place] [address] [place] [address] Assigned PCP 04/16/18 02/04/20 Lisa Fortune MD [address] [address] Assigned PCP 02/05/20 07/28/20 [place] [address] [place] [address] Assigned PCP 07/29/20 05/11/21 Timmy Marrufo, [place]BAST[place]N [address] [place] [address] Nurse Practitioner valve steamer 10/29/21 documented as of this encounter
--- OUTSIDE RECORDS SUMMARY | 2024-07-12 02:26 | XMS_ITS | Encounter Summary ---
Author Organization [facility] Address [address] [place] [address] Care Team Providers Care Eyelet Punch Operator Name Role Phone Lisa Fortune MD Primary Care Provider Gianfranco Blount MD Unavailable [phone] Effie Nguyen RN Unavailable [phone] Prabhakar Marino MD Unavailable [phone] Murali Valentin MD Unavailable Seth Flaherty MD Unavailable [phone] Seth Flaherty MD Unavailable [phone] Lisa Fortune MD Unavailable Seth Flaherty MD Unavailable [phone] Timmy Marrufo CNP Unavailable [phone] Encounter Details Date Type Department Care Team (Late st Contact Info) Description 02/12/2017 [facility] [address] [address] Lisa Fortune MD [address] [address] Social History Tobacco Use Types [...] on filedocumented in this encounter Care Teams Eyelet Punch Operator Relationship Specialty Start Date End Date Lisa Fortune MD PCP - General Internal Medicine 06/23/16 [place] [address] [place], [place] [id number] PCP - Assigned PCP 04/16/18 10/19/18 Gianfranco Blount MD Consulting Physician Internal Medicine - Hematology 11/14/16 07/01/17 Effie Nguyen, RN Nurse Coordinator Hematology & Oncology 11/14/1607/17 Prabhakar Marino MD [address] [address] Hematology & Oncology 01/14/17 05/17/17 Murali Valentin MD [address] [address] Neurology 03/11/17 [place] [address] [place] [address] Assigned PCP 04/16/18 02/04/20 Lisa Fortune MD [address] [place] [address] Assigned PCP 02/05/20 07/28/20 [place] [address] [place] [address] Assigned PCP 07/29/20 05/11/21 Timmy Marrufo CNP [address] [place] [address] Nurse Practitioner senior quality analyst 10/29/21 documented as of this encounter
--- OUTSIDE RECORDS SUMMARY | 2024-07-12 02:26 | XMS_ITS | Encounter Summary ---
Author Organization [facility] Address [address] [place] [address] Care Team Providers Care Shingle Carrier Name Role Phone Lisa Fortune MD Primary Care Provider Gianfranco Blount MD Unavailable Effie Nguyen RN Unavailable Prabhakar Marino MD Unavailable Murali Valentin MD Unavailable [phone] Seth Flaherty MD Unavailable [phone] Seth Flaherty MD Unavailable [phone] Lisa Fortune MD Unavailable Seth Flaherty MD Unavailable [phone] Timmy Marrufo CNP Unavailable [phone] Reason for Visit * Reason Onset Date Comments MyChart Communication 04/09/2017 Encounter Details Date Type Department Care Team (Latest Contact Info) Description 04/09/2017 [facility] Primary [facility] Clinic [address] [address] Lisa Fortune MD [address] [address] MyChart Communication Social History Tobacco [...] on filedocumented in this encounter Care Teams Shingle Carrier Relationship Specialty Start Date End Date Lisa Fortune MD PCP - General Internal Medicine 06/23/16 [place] [address] [place] [address] PCP - Assigned PCP 04/16/18 10/19/18 Gianfranco Blount MD Consulting Physician Internal Medicine - Hematology 11/14/16 07/01/17 Effie Nguyen, RN Nurse Coordinator Hematology & Oncology 11/14/1607/17 Prabhakar Marino MD [address] [place] [address] Hematology & Oncology 01/14/17 05/17/17 Murali Valentin MD [address] [place] [address] Neurology 03/11/17 [place] [address] [place] [address] Assigned PCP 04/16/18 02/04/20 Lisa Fortune MD [address] [address] Assigned PCP 02/05/20 07/28/20 [place] [address] [place] [address] Assigned PCP 07/29/20 05/11/21 Timmy Marrufo CNP [address] [place], [place] [id number] Nurse Practitioner forestry farm laborer 10/29/21 documented as of this encounter
--- OUTSIDE RECORDS SUMMARY | 2024-07-12 02:26 | XMS_ITS | Clinical Summary ---
Author Organization [facility] Address [address] [place] [address] Care Team Providers Care Store Deli Manager Name Role Phone LogeaLisa rosales MD Primary Care Provider [phone] Murali Valentin MD Unavailable [phone] Timmy Marrufo CNP Unavailable [phone] Allergies Active Allergy Reactions Criticality Noted Date Comments Chicken-Derived Products (Egg) Nausea and Vomiting Medium 03/10/2017 Fish Oil GI Disturbance 01/14/2017 Latex Rash Medium 02/11/2017 No Clinical Screening - See Comments Other (See Comments) Low 05/05/2017 Other reaction(s): Runny Nose Penicillins Hives High 06/23/2016 Medications Probiotic Product (PROBIOTIC DAILY PO)Indications:I riley deficiency anemia due to chronic blood loss,Mild persistent asthma without complication Take by mouth daily Active ascorbic acid (VITAMIN C) 1000 MG TABSIndications: Chronic fatigue,Depressi on with anxiety,Celiac disease,Irritabl e bowel syndrome with both constipation and diarrhea,Persist ent disorder of initiating or maintaining sleep Take 1 tablet (1,000 mg) by mouth daily 30 tablet 7 Active cetirizine (ZYRTEC) 10 MG tabletIndication s:Mild persistent asthma without complication TAKE ONE TABLET BY MOUTH ONE TIME DAILY IN THE EVENING 30 tablet 7 Active LORazepam (ATIVAN) 0.5 MG tablet Take one tid prn 7 Active montelukast (SINGULAIR) 10 MG tablet Take 10 mg by mouth At Bedtime 7 Active EPINEPHrine (EPIPEN/ADRENACL ICK/OR ANY BX GENERIC EQUIV) 0.3 MG/0.3ML injection 2-packIndication s:Sensation of swollen throat Inject 0.3 mLs (0.3 mg) into the muscle as needed for anaphylaxis 0.6 mL 1 7 Active NALTREXONE HCL PO Take 3 mg by mouth At Bedtime Active cromolyn (INTAL) 20 MG/2ML neb solution Take 20 mg by nebulization 4 times daily Active cromolyn (GASTROCROM) 100 MG/5ML (HIGH CONC) solution Take 100 mg by mouth 4 times daily (before meals and nightly) Active QUERCETIN PO Active ranitidine (ZANTAC) 150 MG tablet Take 150 mg by mouth daily Active ketotifen (ZADITOR/REFRESH ANTI-ITCH) 0.025 % SOLN ophthalmic solution Place 1 drop into both eyes 2 times daily Active fish oil-omega-3 fatty acids 1000 MG capsule Take 1 g by mouth daily Active Ketotifen Fumarate POWD Take by mouth every evening Active ondansetron (ZOFRAN-ODT) 4 MG ODT tabIndications:I ntractable vomiting with nausea, unspecified vomiting type Take 1 tablet (4 mg) by mouth every 6 hours as needed for nausea or vomiting 60 tablet 8 Active prochlorperazine (COMPAZINE) 10 MG tabletIndication s:Intractable vomiting with nausea, unspecified vomiting type Take 1 tablet (10 mg) by mouth every 6 hours as needed for vomiting 30 tablet 8 Active pantoprazole (PROTONIX) 40 MG EC tabletIndication s:Intractable vomiting with nausea, unspecified vomiting type Take 1 tablet (40 mg) by mouth daily Take 30-60 minutes before a meal. 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 Dysphonia 06/27/2017 Paradoxical vocal fold motion disorder 7 Asthma 11/14/2016 Iron deficiency anemia due to chronic blood loss 11/14/2016 Resolved Problems Problem Noted Date Diagnosed Date Resolved Date Intractable nausea and vomiting 05/03/2018 05/04/2018 Immunizations Name Administration Dates Next Due HPV 09/15/2016 Influenza Vaccine >6 months,quad, PF 06/2016,04/19/2015,05/22/2014, 007 TDAP Vaccine (Boostrix) 09/15/2016,08/17/2006 Family History Medical History Relation Comments Hypothyroidism Father Brain Cancer Maternal Grandmother Brain Cancer Paternal Grandmother Relation Status Comments Father Maternal Grandmother Paternal Grandmother Social History Tobacco Use Types Packs/Day Years Used Date Smoking Tobacco: Never Smokeless Tobacco: Never Tobacco Cessation:Counseling Given: Not Answered Alcohol Use Standard Drinks/Week Comments No 0 (1 standard drink = 0.6 oz pur e alcohol) PHQ-2 Answer Date Recorded PHQ-2 Score 2 08/25/2018 Adolescent Education Answer Date Record ed Getting School Help Needed Not on file 05/08 Comments No Sex and Gender Information Value Date Recorded Sex Assigned at Not on file Legal Sex Female 1:49 PM CDT Gender Identity Not on file Sexual Orientation Not on file Last Filed Vital Signs Vital Sign Reading Time Taken Comments Blood Pressure 91/55 03/04/2023 2:00 PM CDT Pulse 89 03/04/2023 2:00 PM CDT Temperature 36.1 C (96.9 F) 03/04/2023 1:35 PM CDT Respiratory Rate 16 03/04/2023 2:00 PM CDT Oxygen Saturation 99% 03/04/2023 2:00 PM CDT Inhaled Oxygen Concentration - - Weight 70.3 kg (155 lb) 02/27/2023 3:17 PM CDT Height 157.5 cm (5' 2) 02/27/2023 3:17 PM CDT Body Mass Index 28.35 02/27/2023 3:17 PM CDT Plan of Treatment Health Maintenance Due Date Last Done Comments ADVANCE CARE PLANNING 1990 ANNUAL REVIEW OF HM ORDERS 1990 ASTHMA ACTION PLAN 1990 ASTHMA CONTROL TEST 1990 YEARLY PREVENTIVE VISIT 1990 Pneumococcal Vaccine: Pediatrics (0 to 5 Years) and At-Risk Patients (6 to 64 Years) (1 of 2 - PCV) 1996 HIV SCREENING 2005 HEPATITIS B IMMUNIZATION (1 of 3 - 19+ 3-dose series) 2009 HPV IMMUNIZATION (2 - 3-dose series) 10/13/2016 09/15/2016, 09/15/2016, 09/15/2016 PAP 04/03/2020 04/03/2017, 04/03/2017 PHQ-2 (once per calendar year) 2023 11/06/2017 COVID-19 Vaccine (1 - 2023- season) 2024 INFLUENZA VACCINE (#1) 2024 6, 04/19/2015, 05/22/2014, Additional history exists DTAP/TDAP/TD IMMUNIZATION (3 - Td or Tdap) 09/15/2026 09/15/2016, 08/17/2006 RSV VACCINE (1 - 1-dose 75+ series) 2065 HEPATITIS C SCREENING Completed 10/24/2016 MENINGITIS IMMUNIZATION Aged Out No l onger eligible based on patient's age to complete this topic RSV MONOCLONAL ANTIBODY Aged Out No l onger eligible based on patient's age to complete this topic Procedures Procedure Name Priority Date/Time Associated Diagnosis Comments PAP SMEAR - HIM PATIENT REPORTED Routine 04/03/2017 HEPATITIS C ([facility] EXTERNAL RESULT) Routine 10/24/2016 from Last 3 Months or Most Recently Relevant to Health Maintenance Results * PAP Smear - HIM Patient Reported (04/03/2017) PAP Smear - HIM Patient Reported Negative 04/03/2017 us Patient Reported LABORATORY Final Result * Hep C - HIM (10/24/2016) Hep C HIM See Scanned Document [facility] [facility] 10/24/2016 Narrative [facility] [employer] [facility] - 10/24/2016 LAB RESULT [facility] us Provider Outside LAB - HIM EXTERNAL RESULT Final Result [facility] [place] [address], [facility] [phone] from Last 3 Months or Most Recently Relevant to Health Maintenance Advance Directives For more information, please contact: [phone] * Full Code (Latest Code Status on File) Date Activated Date Inactivated Comments 05/03/2018 2:09 PM 05/04/2018 9:07 PM Care Teams Store Deli Manager Relationship Specialty Start Date End Date Lisa Forutne MD PCP - General Internal Medicine 06/23/16 Murali Valentin MD Neurology 03/11/17 Timmy Marrufo CNP [address] [place] [address] Nurse Practitioner client onboarding analyst 10/29/21
--- OUTSIDE RECORDS SUMMARY | 2024-07-12 02:26 | XMS_ITS | Encounter Summary ---
Author Organization [facility] Address [address] [place] [address] Care Team Providers Care Search Optimization Analyst Name Role Phone LogeaLisa rosales MD Primary Care Provider [phone] Gianfranco Blount MD Unavailable Effie Nguyen RN Unavailable [phone] Murali Valentin MD Unavailable Seth Flaherty MD Unavailable [phone] Seth Flaherty MD Unavailable [phone] Lisa Fortune MD Unavailable Seth Flaherty MD Unavailable [phone] Timmy Marrufo CNP Unavailable [phone] Encounter Details Date Type Department Care Team (Late st Contact Info) Description 06/27/2017 [facility] Blood and Marrow Transplant Program [address] [address] Gianfranco Blount MD [address] [place] [address] Social History Tobacco Use Types Packs/Day [...] on filedocumented in this encounter Care Teams Search Optimization Analyst Relationship Specialty Start Date End Date Lisa Fortune MD PCP - General Internal Medicine 06/23/16 [place] [address] [place], [place] [id number] PCP - Assigned PCP 04/16/18 10/19/18 Gianfranco Blount MD Consulting Physician Internal Medicine - Hematology 11/14/16 07/01/17 Effie Nguyen, RN Nurse Coordinator Hematology & Oncology 11/14/1607/17 Murali Valentin MD Neurology 03/11/17 [place] [address] [place] [address] Assigned PCP 04/16/18 02/04/20 Lisa Fortune MD [address] [address] Assigned PCP 02/05/20 07/28/20 [place] [address] [place] [address] Assigned PCP 07/29/20 05/11/21 Timmy Marrufo CNP [address] [place] [address] Nurse Practitioner contract design agent 10/29/21 documented as of this encounter
--- OUTSIDE RECORDS SUMMARY | 2024-07-12 02:26 | XMS_ITS | Encounter Summary ---
Author Organization [facility] Address [address] [place] [address] Care Team Providers Care Security Team Lead Name Role Phone Lisa Fortune MD Primary Care Provider [phone] Murali Valentin MD Unavailable Seth Flaherty MD Unavailable [phone] Seth Flaherty MD Unavailable [phone] Lisa Fortune MD Unavailable Seth Flaherty MD Unavailable [phone] Timmy Marrufo CNP Unavailable [phone] Encounter Details Date Type Department Care Team (Late st Contact Info) Description 05/02/2018 [facility] Blood and Marrow Transplant Program [address] [address] Gianfranco Blount MD [address] [place] [address] Social History Tobacco Use Types Packs/Day [...] on filedocumented in this encounter Care Teams Security Team Lead Relationship Specialty Start Date End Date Lisa Fortune MD PCP - General Internal Medicine 06/23/16 [place] [address] [place] [address] PCP - Assigned PCP 04/16/18 10/19/18 Murali Valentin MD Neurology 03/11/17 [place] [address] [place] [address] Assigned PCP 04/16/18 02/04/20 Lisa Fortune MD [address] [address] Assigned PCP 02/05/20 07/28/20 [place] [address] [place] [address] Assigned PCP 07/29/20 05/11/21 Timmy Marrufo CNP [address] [place] [address] Nurse Practitioner pumping station engineer 10/29/21 documented as of this encounter
--- OUTSIDE RECORDS SUMMARY | 2024-07-12 02:26 | XMS_ITS | Encounter Summary ---
Author Organization [facility] Address [address] [place] [address] Care Team Providers Care Lumber Piler Operator Name Role Phone Lisa Fortune MD Primary Care Provider [phone] Murali Valentin MD Unavailable [phone] Seth Flaherty MD Unavailable [phone] Seth Flaherty MD Unavailable [phone] Lisa Fortune MD Unavailable Seth Flaherty MD Unavailable [phone] Timmy Marrufo CNP Unavailable [phone] Reason for Referral * Consultation - Closed Specialty Diagnoses / Procedures Referred By Contac t Referred To Contact Diagnoses Chest tightness Uncomplicated asthma, unspecified asthma severity, unspecified whether persistent Lisa Fortune MD [address] [address] Phone: tel: fax: Referral ID Status Reason Start Date Expiration Date Visits Re quested Visits Authorized [id number] Closed 09/22/2017 09/22/2018 1 1 Comments Your provider has referred you to: [facility]: [facility] [email or web address] Please be aware that coverage of these services is subject to the terms and limitations of your health insurance plan. Call member services at your health plan with any benefit or coverage questions. Please bring the following with you to your appointment: (1) Any X-Rays, CTs or MRIs which have been performed. Contact the facility where they were done to arrange for picker packer prior to your scheduled appointment. (2) List of current medications (3) This referral request (4) Any documents/labs given to you for this referral SUPERVISOR Encounter Details Date Type Department Care Team (Late st Contact Info) Description 09/21/2017 [facility] Advice [facility] Primary Care Clinic [address] [place] [address] Lisa Fortune MD [address] [address] Chest tightness (Primary Dx); Uncomplicated asthma, unspecified asthma severity, unspecified whether persistent Social History Tobacco Use Types Packs/Day Years [...] on file documented as of this encounter Miscellaneous Notes * Telephone Encounter - Lisa Fortune MD - 09/22/2017 2:37 PM GANG SUPERVISOR I placed referrals for PFTs and pulmonary consult. If she needs more urgent attention would recommend PCC appt. Thanks, Lisa Fortune MD Internal Medicine SUPERVISOR documented in this encounter Plan of Treatment Scheduled Referrals Name Type Priority Associated Diagnoses Orde r Schedule PULMONARY MEDICINE REFERRAL Referral Routine Chest tightness Uncomplicated asthma, unspecified asthma severity, unspecified whether persistent Ordered: 09/22/2017 documented as of this encounter Visit Diagnoses Diagnosis Chest tightness- Primary Other chest pain Uncomplicated asthma, unspecified asthma severity, unspecified whether persistent documented in this encounter Care Teams Lumber Piler Operator Relationship Specialty Start Date End Date Lisa Fortune MD PCP - General Internal Medicine 06/23/16 [place] [address] [place] [address] PCP - Assigned PCP 04/16/18 10/19/18 Murali Valentin MD Neurology 03/11/17 [place] [address] [place] [address] Assigned PCP 04/16/18 02/04/20 Lisa Fortune MD [address] [place] [address] Assigned PCP 02/05/20 07/28/20 [place] [address] [place] [address] Assigned PCP 07/29/20 05/11/21 Timmy Marrufo CNP [address] [facility] [address] Nurse Practitioner migratory worker 10/29/21 documented as of this encounter
--- OUTSIDE RECORDS SUMMARY | 2024-07-12 02:26 | XMS_ITS | Encounter Summary ---
Author Organization [facility] Address [address] [place] [address] Care Team Providers Care Sales Branch Manager Name Role Phone Lisa Fortune MD Primary Care Provider Gianfranco Blount MD Unavailable Effie Nguyen RN Unavailable [phone] Prabhakar Marino MD Unavailable [phone] Murali Valentin MD Unavailable Seth Flaherty MD Unavailable [phone] Seth Flaherty MD Unavailable [phone] Lisa Fortune MD Unavailable Seth Flaherty MD Unavailable [phone] Timmy Marrufo CNP Unavailable [phone] Encounter Details Date Type Department Care Team (Late st Contact Info) Description 10/21/2016 [facility] Primary Care Clinic [address] [address] Lisa Fortune MD [address] [address] Social History Tobacco Use Types [...] on filedocumented in this encounter Care Teams Sales Branch Manager Relationship Specialty Start Date End Date Lisa Fortune MD PCP - General Internal Medicine 06/23/16 [place] [address] [place], [place] [id number] PCP - Assigned PCP 04/16/18 10/19/18 Gianfranco Blount MD Consulting Physician Internal Medicine - Hematology 11/14/16 07/01/17 Effie Nguyen, RN Nurse Coordinator Hematology & Oncology 11/14/1607/17 Prabhakar Marino MD [address] [address] Hematology & Oncology 01/14/17 05/17/17 Murali Valentin MD [address] [address] Neurology 03/11/17 [place] [address] [place] [address] Assigned PCP 04/16/18 02/04/20 Lisa Fortune MD [address] [place] [address] Assigned PCP 02/05/20 07/28/20 [place] [address] [place] [address] Assigned PCP 07/29/20 05/11/21 Timmy Marrufo CNP [address] [place] [address] Nurse Practitioner sand conditioner 10/29/21 documented as of this encounter
--- OUTSIDE RECORDS SUMMARY | 2024-07-12 02:26 | XMS_ITS | Referral Summary ---
Author Organization [facility] Address [address] [place] [address] Care Team Providers Care Roller Setter Name Role Phone LogeaLisa rosales MD Primary Care Provider [phone] Murali Valentin MD Unavailable [phone] Timmy Marrufo CNP Unavailable [phone] Allergies Active Allergy Reactions Criticality Noted [...] PF 06/2016,04/19/2015,05/22/2014, 007 TDAP Vaccine (Boostrix) 09/15/2016,08/17/2006 Social History Tobacco Use Types Packs/Day Years [...] 02/27/2023 3:17 PM CDT Plan of Treatment Not on file Procedures Procedure Name Priority Date/Time Associated Diagnosis Comments PAP SMEAR - HIM PATIENT REPORTED Routine 04/03/2017 HEPATITIS C ([facility] EXTERNAL RESULT) Routine 10/24/2016 from Last 3 Months or Most Recently Relevant to Health Maintenance Results * PAP Smear - HIM Patient Reported (04/03/2017) PAP Smear - HIM Patient Reported Negative 04/03/2017 us Patient Reported LABORATORY Final Result * Hep C - HIM (10/24/2016) Hep C HIM See Scanned Document [facility] 10/24/2016 Narrative [facility] - 10/24/2016 LAB RESULT [facility] us Provider Outside LAB - HIM EXTERNAL RESULT Final Result [facility] [address] [facility] [phone] from Last 3 Months or Most Recently Relevant to Health Maintenance Advance Directives For more information, please contact: [phone] * Full Code (Latest Code Status on File) Date Activated Date Inactivated Comments 05/03/2018 2:09 PM 05/04/2018 9:07 PM Care Teams Roller Setter Relationship Specialty Start Date End Date Lisa Fortune MD PCP - General Internal Medicine 06/23/16 Murali Valentin MD Neurology 03/11/17 Timmy Marrufo CNP [address] [address] Nurse Practitioner dental assistant medical assistant 10/29/21
--- OUTSIDE RECORDS SUMMARY | 2024-07-12 02:26 | XMS_ITS | Encounter Summary ---
Author Organization [facility] Address [address] [place] [address] Care Team Providers Care Appeals Reviewer Veteran Name Role Phone Lisa Fortune MD Primary Care Provider [phone] Murali Valentin MD Unavailable Seth Flaherty MD Unavailable [phone] Seth Flaherty MD Unavailable [phone] Lisa Fortune MD Unavailable Seth Flaherty MD Unavailable [phone] Timmy Marrufo CNP Unavailable [phone] Encounter Details Date Type Department Care Team (Late st Contact Info) Description 02/03/2018 [facility] Blood and Marrow Transplant Program [address] [address] Gianfranco Blount MD [address] [place] [address] Social History Tobacco Use Types Packs/Day [...] on filedocumented in this encounter Care Teams Appeals Reviewer Veteran Relationship Specialty Start Date End Date Lisa Fortune MD PCP - General Internal Medicine 06/23/16 [place] [address] [place] [address] PCP - Assigned PCP 04/16/18 10/19/18 Murali Valentin MD Neurology 03/11/17 [place] [address] [place] [address] Assigned PCP 04/16/18 02/04/20 Lisa Fortune MD [address] [address] Assigned PCP 02/05/20 07/28/20 [place] [address] [place] [address] Assigned PCP 07/29/20 05/11/21 Timmy Marrufo CNP [address] [place] [address] Nurse Practitioner potato chip sacking machine operator 10/29/21 documented as of this encounter
--- OUTSIDE RECORDS SUMMARY | 2024-07-12 02:26 | XMS_ITS | Encounter Summary ---
Author Organization [facility] Address [address] [place] [address] Care Team Providers Care Chief Informatics Officer Name Role Phone Lisa Fortune MD Primary Care Provider Gianfranco Blount MD Unavailable Effie Nguyen RN Unavailable [phone] Prabhakar Marino MD Unavailable Murali Valentin MD Unavailable Seth Flaherty MD Unavailable [phone] Seth Flaherty MD Unavailable [phone] Lisa Fortune MD Unavailable Seth Flaherty MD Unavailable [phone] Timmy Marrufo CNP Unavailable [phone] Encounter Details Date Type Department Care Team (Late st Contact Info) Description 10/26/2016 [facility] Primary Care Clinic [address] [address] Lisa Fortune MD [address] [address] Social History Tobacco Use Types [...] on filedocumented in this encounter Care Teams Chief Informatics Officer Relationship Specialty Start Date End Date Lisa Fortune MD PCP - General Internal Medicine 06/23/16 [place] [address] [place], [place] [id number] PCP - Assigned PCP 04/16/18 10/19/18 Gianfranco Blount MD Consulting Physician Internal Medicine - Hematology 11/14/16 07/01/17 Effie Nguyen, RN Nurse Coordinator Hematology & Oncology 11/14/1607/17 Parbhakar Marino MD [address] [address] Hematology & Oncology 01/14/17 05/17/17 Murali Valentin MD [address] [address] Neurology 03/11/17 [place] [address] [place] [address] Assigned PCP 04/16/18 02/04/20 Lisa Fortune MD [address] [place] [address] Assigned PCP 02/05/20 07/28/20 [place] [address] [place] [address] Assigned PCP 07/29/20 05/11/21 Timmy Marrufo CNP [address] [place] [address] Nurse Practitioner manager audit 10/29/21 documented as of this encounter
--- OUTSIDE RECORDS SUMMARY | 2024-07-12 02:27 | XMS_ITS | Data Portability ---
Author Organization [facility] [employer], [id number] [place] Address [address] [place] [address] [address] [place] [address] Assessment Encounter Date Assessment Date Assessment LastModified by Organization Details LastModified Time 06/16/2022 06/16/2022 total face to face and non face to face time spent by myself on this encounter was 30 minutes. [email or web address] Not available 06/16/2022 12:04:50 Plan of Treatment Reminders Order Date Submit Date Provider Last Modified By Organization Details Last Modified Time Details Appointments None record ed. Lab None record ed. Referral None record ed. Procedures None record ed. Surgeries None record ed. Imaging None record ed. Medication Orders None record ed. Patient TargetsNo targets recorded. Patient Instructions Encounter Date Encounter Id Patient Instructions Last Modified By Organization Details Last Modified Time 06/16/2022 [id number] reviewed fertili ty workup and treatment to date. She appears to have unexplained infertility and has done 7 cycles of letrozole. She has family history of endometriosis but does not have painful menses herself. I reviewed that laparoscopy is only indicated for pain and does not improve fertility outcome in the absence of endometriomas. I reviewed that at this point I recommend a MARIANNE consult to consider IVF and I do not recommend a laparoscopy at this point. She will follow up with MARIANNE now. [email or web address] Not available 06/16/2022 12:05:02 Reason for Referral None Reported. Procedures Surgical History Date Name Laterality Status Provider Name and Address Organization Details Recorded Time 02/25/2022 Date of Last Pap Smear completed Christiane Maharaj [place] [employer] 06/16/2022 08:49:49 Imaging Results None recorded. Procedure Notes None recorded. Medical Equipment None Reported. Allergies Allergen ID Allergen Name Allergen Category Reaction Reaction Severity Criticality Documentation Date Start Date Code Code System Note Provider Name and Address Organization Details Recorded Time 441827 Medicinal product containin g penicilli n and acting as antibacte rial agent (product) medicatio n Not available Not available Not available 06/16/2022 99039 05 SNOMED Christiane estradaTAYLOR [employer] 2 08:52:37 Medications Name Sig Start Date Stop Date Status Note LastModified by Organization Details LastModified Time nortriptyline 10 mg capsule take 1 Capsule by oral route every bedtime active Not Available Not Available No t Available progesterone micronized 200 mg capsule as directed Orally Twice a day 12 days active Not Available Not Available No t Available letrozole 2.5 mg tablet TAKE 2 tablets BY MOUTH ON Days 3-7 of cycle. 5 days active Not Available Not Available No t Available Ovidrel 250 mcg/0.5 mL subcutaneous syringe INJECT 1 SYRINGE UNDER THE SKIN ONCE IN THE ABDOMEN active Not Available Not Available No t Available Vitals Date Recorded Body weight Body mass index (BMI) Body height Systolic blood pressure Diastolic blood pressure Provider Name and Address Organization Details Last Updated DateTime 06/16/2022 29949.59 g 28.4 kg/m2 158.75 cm 110 mm[Hg] 60 mm[Hg] Christiane Maharaj TAYLOR Mendoza [employer] 2 08:52:28 Social History Question Answer Notes LastModified by Organizat ion Details LastModified Time Tobacco Smoking Status Never Smoker Christiane estrada TAYLOR Godfrey Mendoza [employer] 06/16/2022 08:50:01 Do You Have An Advance Directive? No [email or web address] Information not available 06/16/2022 What Is Your Level Of Alcohol Consumption? None Information not available 06/16/2022 If You Are , What Was Your Level Of Alcohol Consumption Prior To ? None [email or web address] Information not available 06/16/2022 Are You Currently Sexually Active With Anyone Who Has Traveled (within The Last 12 Weeks) To A Zika-affected Area? No [email or web address] Information not available 06/16/2022 Are You Blind Or Do You Have Difficulty Seeing? No [email or web address] Information not available 06/16/2022 Is Blood Transfusion Acceptable In An Emergency? Yes Information not available 06/16/2022 What Is Your Level Of Caffeine Consumption? None [email or web address] Information not available 06/16/2022 How Much Tobacco Do You Chew? None [email or web address] Information not available 06/16/2022 Are You Currently Employed? Yes Information not available 06/16/2022 Are You Deaf Or Do You Have Serious Difficulty Hearing? No Information not available 06/16/2022 What Type Of Diet Are You Following? GLUTENFREE [email or web address] Information not available 06/16/2022 Which Illicit Or Recreational Drugs Have You Used? None [email or web address] Information not available 06/16/2022 Do You Or Have You Ever Used E-cigarettes Or Vape? Never Used Electronic Cigarettes Information not available 06/16/2022 What Is The Highest Grade Or Level Of School You Have Completed Or The Highest Degree You Have Received? 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 No [email or web address] Information not available 06/16/2022 [facility] [email or web address] Informat ion not available 06/16/2022 History Of Domestic Violence No [email or web address] Information no t available 06/16/2022 Spouse/Partners Name Geoff Information not available 06/16/2022 What Was The Date Of Your Most Recent Tobacco Screening? 06/16/2022 Information not available 06/16/2022 What Is Your Relationship Status? Information not available 06/16/2022 Do You Use Your Seat Belt Or Car Seat Routinely? Yes [email or web address] Information not available 06/16/2022 Do You Or Have You Ever Used Smokeless Tobacco? Never Used Smokeless Tobacco [email or web address] Information not available 06/16/2022 How Much Tobacco Do You Smoke? No [email or web address] Information not available 06/16/2022 Do You Feel Stressed (tense, Restless, Nervous, Or Anxious, Or Unable To Sleep At Night)? [id number] [email or web address] Information not available 06/16/2022 Has Tobacco Cessation Counseling Been Provided? No Information not available 06/16/2022 How Many Years Have You Smoked Tobacco? 0 Information not available 06/16/2022 Do You Or Have You Ever Used Any Other Forms Of Tobacco Or Nicotine? No [email or web address] Information not available 06/16/2022 Sex: Unknown Functional Status Question Answer Note LastModified by Organizat ion Details LastModified Time Do you have difficulty walking or climbing stairs? No [email or web address] Information not available 06/16/2022 Do you have difficulty doing errands alone? No [email or web address] Information not available 06/16/2022 Do you have difficulty dressing or bathing? No Information not available 06/16/2022 What is your exercise level? Moderate Information not available 06/16/2022 Mental Status Question Answer Note LastModified by Organization D etails LastModified Time Do you have difficulty concentrating, remembering or making decisions? No [email or web address] Information no t available 06/16/2022 Family History Relationship Description Onset Age of this Age Resolved Age Notes LastModified by Organization Details LastModified Time Father Hypercholest erolemia [email or web address] Not available 2021 08:49:25 Father Hypertensive disorder Not available 2021 08:49:25 Medical History Condition Response Dermatology-Acne Y Hematology- Anemia Y GI- Irritable Bowel Syndrome Y Pulmonary- Asthma Y Gynecological History Statement/Question Response History of Vulvar Dysplasia N HPV Test Not Applicable Date of LMP 06/04/2022 History of Cervical Dysplasia N Sexual Orientation Heterosexual History of Infertility Y Sexually Active Y Age at first intercourse 26 History of PCOS N History of Endometriosis N History of Abnormal PAP N History of Recurrent Ovarian Cysts Y Total lifetime partners Less than 5 Seeking 13 Date of Last Pelvic Ultrasound Age at Menarche: 13 History of Sexually Transmitted Infectio n N Y HPV Vaccine Complete Current Control Method None History of Fibroids N Date of Last Pap Smear 02/25/2022 Obstetrics History GPAL:G 0 P 0 0 0 0 Type Value Multiple Births 0 Full Term 0 Induced 0 Spontaneous 0 Premature 0 Living 0 Ectopics 0 Total 0 Immunizations Vaccine Type Date Status Provider Name and Address Organization Details Recorded Time Tdap 01/27/2017 completed TAYLOR Jacobs [employer] 06/16/2022 08:50:05 Past Encounters Encounter ID Performer Location Encounter Start Date Encounter Closed Date Diagnosis/Indication Diagnosis SNOMED-CT Code Diagnosis ICD10 Code [id number] KAMRON NESBITT MD [id number] GOGO_MARGIE VELAZQUEZ [address] [facility] [address] [place] [address] 06/16/2022 08:46:45 06/16/2022 09:57:34 Female infertility 1213337 N97.9 Health Concerns Section Related Observation LastModified by Organization Detai ls LastModified Time None Recorded Concern Status LastModified by Organization Details LastModified Time None Recorded Advance Directives Directive N: Payers Encounter Date Sequence Insurance Name Policy Number Policy Sarah Covered Member ID Sarah Member ID Guarantor Name 06/16/2022 1 [employer] (PPO) [id number] Flaca Mckenzie [id number] Flaca Mckenzie Notes Date Note Type Note Provider Name and Address Organization Details Recorded Time 06/16/2022 text/html Patient is a {{ 31 #}} year old G{{ 0#}} P{{ 0#}}, LMP {{ 06/04/22#}}, who presents with the inability to conceive. She has not conceived despite having unprotected sexual intercourse for {{ 1.5#}} {{years* months}}. She discontinued contraception {{ 1.5#}} {{months years*}} ago. She has had a previous work up for infertility. She has had a work up at [facility]:labs done 2DHEA Sulfate: 453--then they ordered a CT scan that was normal but small pulmonary nodule--she has been referred to pulmonaryCortisol 9.6TPO antibodies--neg/normal TSH 1.05day 3 labs: FSH 4.7 estradiol 26 prolactin 13.7total test 18AMH 2.05 She reports HSG in Apr 2022 (no records to review)--both tubes were open she did 7 cycles of letrozole and 3 of them had IUI. The cycles were monitored by ultrasound--she normally made 1-2 follicle and she responded well. She only used ovidrel 2 of the cycles. she reports normal SA. {{The patient has not had any previous pregnancies* history notable for}}. Menses are {{regular* irregular}} and occur every {{ 28-31#}} days with {{ 3-4#}} days of {{light moderate heavy *}} flow. Denies dysmenorrhea or pelvic pain. OPKs {{consistently turn positive* have not turned positive}}. Her past medical history is IBS and anemia and on an vegan iron supplement. She has history of mild asthma--does not need treatment. BMI is {{ 28.4#}}. {{Denies history of STIs* History of}}. She {{denies tobacco and marijuana use* admits to}}. She states she {{has received the MMR vaccine* is unsure of her rubella status}} and {{has had the chicken pox has received the varicella vaccine*}}. She has not had the COVID vaccine. She declines the flu shot--she is allergic to eggs. No pertinent genetic family history. Her partner is {{ 30#}} years old. His medical history is {{non-contributory* no table for}}. {{He does not use tobacco or marijuanna* He admits to using}}. He {{has not fathered children in the past* has fathered}}. He has not had a semen analysis. He is a social workerShe is chiropractor assistantThey live [place] she denies any abnl hair growth she reports a family [place] [address] [facility],[address], [place], [address], [facility] [employer] 06/16/2022 12:05:11 OBGyn Episode No OBEpisode recorded.
--- OUTSIDE RECORDS SUMMARY | 2024-07-12 02:27 | XMS_ITS | Patient Health Record ---
Author Organization [facility] Address [address] [place] [address] Care Team Providers Care Radiation Physicist Name Role Phone Qasim Saira Primary Care Provider Jess Stover Unavailable [phone] Timmy Marrufo Unavailable [phone] Dee Dee Drummond Unavailable Allergies Allergen (clinical drug ingredient) Drug/Non Drug Allergy documented on EMR Reaction Allergy Type Onset Date Status Penicillin Unknown Drug Allergy Active Reason For Referral Reason MHFV^4.1 Diagnosis 1 Elevated DHEA (E27.8 ) Referral Organization [facility] Referring Provider First Name Dee Dee Referring Provider Last Name Lizet Doll er Referring Provider 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 I would like to refer her to endocrine, an material handling technician. Isac ALCALA Katelyn 11/10/2023 11:56:57 AM CDT > Referral made and faxed to [facility]: Radha using [phone] for phone and [phone] for fax.Beatrice Andrea 11/16/2023 01:34:49 PM >Referral there nothing lexus.Beatrice Andrea 11/25/2023 08:49:49 AM >M[facility]V Stated that they have been unable to schedule PT after several attempts- PT can call and [facility]. when she would like Referral Priority Routine Medications Medication SIG (Take, Route, Frequency, Duration) Notes Start Date End Date Status Nortriptyline HCl Ac tive Vitamin D Active Pepcid Active Chromium Not-Taking ZyrTEC Active Ovidrel 250 MCG/0.5ML as directed Subcutaneous Active Active DIM Not-Taking Cabergoline 0.5 MG 1 tablet Orally Active Folate Not-Taking Probiotic Active Iron Not-Taking Naltrexone Active L-Glutamic Acid Not- Taking Detox Active Magnesium Active Progesterone 200 MG 1 capsule at bedtime Orally Once a day for 30 days 06/16/2023 Not-Taking Vitamin C Active Social History Tobacco Use: Social History Observation Description Date Details (start date - stop date) Never Smoker NA - NA Tobacco Use/Smoking Question Answer Notes Are you a nonsmoker Alcohol Screen (Audit-C) Question Answer Notes Did you have a drink containing alcohol in the p ast year? No Points 0 Interpretation Negative Problems Problem Type SNOMED Code ICD Code Onset Dates Problem Status W/U Status Risk Notes Problem Female infertility associated with anovulation (140850326) Female infertility associated with anovulation (N97.0) Active confirmed Problem Abnormal weight gain (356247166) Abnormal weight gain (R63.5) Active confirmed Problem 071326353 Solitary pulmona ry nodule (R91.1) Active confirmed Problem 461324632 Infertility, anovulation (N97.0) Active confirmed Problem 8518666 Female infertili ty (N97.9) Active confirmed Problem 396454628 High-tone pelvic floor dysfunction (N94.89) Active confirmed Problem 480433029 Dysmenorrhea (N94.6) Active confirmed Problem Pain in female genitalia on intercourse (03414461) Dyspareunia in female (N94.10) Active confirmed Problem Anovulation (56051088) Anovulation (N97.0) Activ e confirmed Problem 367363213 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) Active confirmed Problem Dehydroepiandrostero ne sulfate level (389898524) Elevated DHEA (E27.8) Active confirmed Problem Congenital hypothyroidism screening test (098275164) Screening for hypothyroidism (Z13.29) Active confirmed Vital Signs Blood pressure diastolic 70 mm Hg 11/13/2023 Height 62 in 11/13/2023 Blood pressure systolic 128 mm Hg 11/13/2023 Weight 148.2 lbs 11/13/2023 BMI 27.1 kg/m2 11/13/2023 Encounters Encounter Location Date Provider Diagnosis [facility] [address] [place] [address] 11/10/2023 Dee Dee Corbin Encounter for fertility testing Z31.41 [facility] [address] [place] [address] 11/10/2023 Dee Dee Corbin Female infertility N97.9 [facility] [address] [place] [address] 07/31/2023 Timmy Marrufo [facility] [address] [place] [address] 07/31/2023 Timmy Marrufo Pelvic pain R10.2 ; Dyspareunia in female N94.10 and Pelvic floor dysfunction M62.89 [facility] [address] [place] [address] 11/13/2023 Dee Dee Corbin Encounter for artificial insemination Z31.89 [facility] [address] [place] [address] 11/01/2023 Timmy Marrufo [facility] [address] [place] [address] 11/10/2023 Dee Dee Corbin [facility] BERT BOATENG [address] [place] [phone] 11/10/2023 Dee Dee Corbin Assessments Encounter Date Diagnosis (ICD Code) Assessment Notes Treatment Notes Treatment Clinical Notes Section Notes 11/13/2023 Encounter for artificial insemination (ICD-10 - Z31.89) 11/10/2023 Encounter for fertility testing (ICD-10 - Z31.41) 11/10/2023 Female infertility (ICD-10 - N97.9) 07/31/2023 Pelvic pain (ICD-10 - R10.2) 07/31/2023 Dyspareunia in female (ICD-10 - N94.10) 07/31/2023 Pelvic floor dysfunction (ICD-10 - M62.89) 07/31/2023 Other Explained/revie wed [employer] device. Attach 2 abdominal pads, 1 pad to hip or thigh. Apply elecrode gel to vaginal probe prior to insertion. Once unit is powered on, scroll to interactive games section. _select 1 each of sustained contractions (5 mins) and quick flick exercises (do 2 mins) OR do EMG Test (5 min total duration) Lastliy, scroll to e-stim options. _select Pelvic Pain P16 or General P09 protocol - utilize stim for (5-10) minutes Use device 1-3 days weekly and use vaginal pelvic floor want after Follow up as needed Unit Model:[id number] 003 Unit LOT: [id number] 25 min. of total time spent in chart prep, reviewing previous notes, providing education on pelvic floor stimulation device, answering questions and documenting visit note 11/10/2023 Other 1. Discussed ultrasound 2. She is going to have her prolactin re-drawn in about 6 weeks 3. endocrine referral for hyperprolactine jerad 4. Ovidrel thursday, 11/10 8:00 pm and IUI thursday, around 1-2 pm. Plan Of Treatment Pending Test Test Name Order Date Hysterosalpingogram 10/10/2021 Insurance Providers Payer Name Payer Address Payer Phone Subscriber Number Group Number Insured Name Patient Relationship to Insured Coverage Start Date Coverage End Date Self Pay [address] [id number] [phone] [id number] Flaca Mckenzie Self - patient is the insured Medical (General) History Medical History History ICD Code Anemia Asthma Depression\Anxiety Surgical History Surgery Date(Month/Year) Lasix Laparoscopy 03/04/2023
--- OUTSIDE RECORDS SUMMARY | 2024-07-12 02:27 | XMS_ITS | Clinical Summary ---
Author Organization [facility] Address [place], [place] [address] Care Team Providers Care Pipe Bending Machine Operator Name Role Phone Pcp, No Primary Care Provider Unavailabl e Allergies Active Allergy Reactions Criticality Noted Date Comments Latex Rash Low 02/11/2017 Penicillins Rash 08/27/2009 Medications Medication Sig Dispensed Refills Start Date End Date Status famotidine (Pepcid) 20 mg tablet Take 20 mg by mouth once daily. 07/30/2023 Active Cetirizine (ZyrTEC) 10 mg cap Take 10 mg by mouth once daily if needed. 07/30/2023 Active medication order composer Baby and me : Daily Fish oil 500mg: Daily Nutridyn Magnesium glycinate: Daily CoQ10 100mg: Daily D3 2000IU: Daily Dionna: Daily Calcium: Daily Vitamin E: Daily Nrf 2 Liver detox: Daily Ovasitol: Daily Berberine: Daily 12/21/2023 Active medication order composerIndication s:Inflammatory autoimmune disorder (HC) Naltrexone 4.5 mg lactose free tablet at bedtime each night 90 Tablet 3 12/21/2023 Active metFORMIN (GLUCOPHAGE XR) 500 mg Extended-Release tabletIndications: Inflammatory autoimmune disorder (HC),Insulin resistance,Hyperan drogenemia,Hyperpr olactinemia (HC) Take 1 with supper, in 2 weeks take 2 with supper, 2 weeks later take 3 with supper for full 1500 mg dose 270 Tablet 1 12/21/2023 Active Additional Information Patient taking differently: Take 1 with supper, in 2 weeks take 2 with supper, 2 weeks later take 3 with supper for full 1500 mg dosePatient taking 1000mg, Reported on 03/30/2024 letrozole (FEMARA) 2.5 mg tabletIndications: Hyperandrogenemia, Hyperprolactinemia (HC),Insulin resistance,Endomet riosis determined by laparoscopy,Inflam matory autoimmune disorder (HC) Take 1 Tablet (2.5 mg) by mouth once daily. Cycle day 3-7 after a negative test 5 Tablet 1 02/09/2024 Active progesterone micronized (Prometrium) 200 mg capsuleIndications :Insulin resistance,Hyperan drogenemia,Hyperpr olactinemia (HC),Endometriosis determined by laparoscopy,Inflam matory autoimmune disorder (HC) Take 1 Capsule (200 mg) by mouth at bedtime. Start 3 days after ovulation and continue for 10 nights. This product contains peanut oil. Please verify patient allergies. 30 Capsule 3 03/28/2024 Active cabergoline (DOSTINEX) 0.5 mg tabletIndications: Hyperprolactinemia (HC),Insulin resistance,Overwei ght (BMI 25.0-29.9) Take 0.25 mg by mouth once every 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 [address] [facility] [address] [place] [address] Lab 05/17/2024 Orders Only [facility] [address] [place] [id number] Aimee Franklin, DO <No scans attached> 05/16/2024 Travel 04/21/2024 9:40 AM CDT Orders Only [facility] [address] [place] [address] Lab 04/21/2024 Travel from Last 3 Months Immunizations Name Administration Dates Next Due Human Papilloma Virus Vaccine 09/15/2016 Influenza, IIV4 05/27/2016,04/19/2015,05/22/2014 ,06/14/2007 Tdap 09/15/2016,08/17/2006 Family History Medical History Relation Name Comments GI Disease Father GERD Hypertension Father Thyroid Disease Father hypo Asthma Maternal Grandmother Cancer Maternal Grandmother brain Good Health Mother Cancer Paternal Grandmother brain Endometriosis Sister Relation Name Status Comments Brother Alive Father Alive Maternal Grandmother Mother Alive Paternal Grandmother Sister Alive Social History Tobacco Use Types Packs/Day Years Used Date Smoking Tobacco: Never Smokeless Tobacco: Never Tobacco Cessation:Counseling Given: Yes Alcohol Use Standard Drinks/Week Comments No 0 (1 standard drink = 0.6 oz pur e alcohol) PHQ-2 Answer Date Recorded PHQ-2 TOTAL SCORE 0 07/30/2023 Sex and Gender Information Value Date Recorded Sex Assigned at Not on file Gender Identity Not on file Sexual Orientation Not on file Obstetrics History Para Term AB IAB SAB Ectopic Multiple Livin g Live Births 1 1 1 Date Outcome GA Total Labor Labor/2nd/3rd Weight Sex Type Anes PTL Josi A1 A5 Name Clin SAB Last Filed Vital Signs Vital Sign Reading Time Taken Comments Blood Pressure 124/60 10/23/2023 10:00 AM ESCALATOR INSTALLER Pulse 78 10/23/2023 10:00 AM ESCALATOR INSTALLER Temperature 36.9 C (98.4 F) 06/10/2017 3:07 PM CDT Respiratory Rate 16 06/10/2017 4:11 PM CDT Oxygen Saturation 99% 06/10/2017 4:11 PM CDT Inhaled Oxygen Concentration - - Weight 68 kg (150 lb) 10/23/2023 10:00 AM ESCALATOR INSTALLER Height 160 cm (5' 3) 07/30/2023 2:29 PM ESCALATOR INSTALLER Body Mass Index 26.57 07/30/2023 2:29 PM ESCALATOR INSTALLER Plan of Treatment Health Maintenance Due Date Last Done Comments HIV for age 15-65 2005 Hepatitis C screening for age 18-79 2008 Pap test for age 21-65 04/03/2020 04/03/2017, 2013 COVID-19 vaccine series (2023- season) 2024 Influenza for age 9-49 04/17/2024 6, 04/19/2015, 04/19/2015, Additional history exists BMI (ht and wt on same day) for age 18+ 07/30/2024 07/30/2023, 06/10/2017, 04/03/2017, Additional history exists Depression screening for age 12+ 07/30/2024 07/30/2023, 04/03/2017, 09/18/2015 Tetanus booster 09/15/2026 09/15/2016, 08/2006 (Completed outside of [facility]), 08/17/2006 Tdap Completed 09/15/2016, 08/2006 (Completed outside of [facility]), 08/17/2006 Pneumococcal series for age 6-64 Aged Out No longer eligible based on patient's age to complete this topic Procedures Procedure Name Priority Date/Time Associated Diagnosis Comments DHEA-SULFATE (DHEA-S) Routine 05/17/2024 9:58 AM CDT Hyperandrogenemia Hyperprolactinemia (HC) Insulin resistance Endometriosis determined by laparoscopy Inflammatory autoimmune disorder (HC) PROLACTIN Routine 05/17/2024 9:58 AM CDT Hyperprolactinemia (HC) DHEA-SULFATE (DHEA-S) Routine 04/21/2024 9:45 AM CDT Hyperandrogenemia Hyperprolactinemia (HC) Insulin resistance Endometriosis determined by laparoscopy Inflammatory autoimmune disorder (HC) PROLACTIN Routine 04/21/2024 9:45 AM CDT Hyperprolactinemia (HC) BODY TECHNICIAN THIN PREP PAP SCREEN IMAGED Routine 04/03/2017 1:00 PM CDT Encounter for gynecological examination with Papanicolaou smear of cervix from Last 3 Months or Most Recently Relevant to Health Maintenance Results * PROLACTIN (05/17/2024 9:58 AM CDT) Only the most recent of2 resultswithin the time period is included. PROLACTIN 10.80 4.79 - 23.30 ng/mL 05/17/2024 2:14 PM CDT [facility] Blood BLOOD SPECIMEN / Unknown Add On / Unknown 05/17/2024 9:58 AM CDT 05/17/2024 9:58 AM CDT Aimee Franklin DO SEND OUTS [facility] [address] [place] [address], * DHEA-SULFATE (DHEA-S) (05/17/2024 9:58 AM CDT) Only the most recent of2 resultswithin the time period is included. DHEA-SULFATE(D HEA-S) 240.0 ug/dL 05/17/2024 2:14 PM CDT [facility] Blood BLOOD SPECIMEN / Unknown Add On / Unknown 05/17/2024 9:58 AM CDT 05/17/2024 9:58 AM CDT Narrative [facility] - 05/17/2024 2:14 PM CDT DHEA SULFATE REFERENCE RANGES Age Range Female Male Units 0 week up to 4 weeks 31.6 - 431.0 31.6 - 431.0 ug/dL 1 month up to 12 months 3.4 - 124.0 3.4 - 124.0 ug/dL 1 year up to 5 years 0.5 - 19.4 0.5 - 19.4 ug/dL 5 years up to 10 years 2.8 - 85.2 2.8 - 85.2 ug/dL 10 years up to 15 years 33.9 - 280.0 24.4 - 247.0 ug/dL 15 years up to 20 years 65.1 - 368.0 70.2 - 492.0 ug/dL 20 years up to 25 years 148.0 - 407.0 211.0 - 492.0 ug/dL 25 years up to 35 years 98.8 - 340.0 160.0 - 449.0 ug/dL 35 years up to 45 years 60.9 - 337.0 88.9 - 427.0 ug/dL 45 years up to 55 years 35.4 - 256.0 44.3 - 331.0 ug/dL 55 years up to 65 years 18.9 - 205.0 51.7 - 295.0 ug/dL 65 years up to 75 years 9.4 - 246.0 33.6 - 249.0 ug/dL 75 years up to 999 years 12.0 - 154.0 16.2 - 123.0 ug/dL Biotin supplements may cause clinically significant interference for this test assay. If interference is suspected, it is strongly recommended that biotin is discontinued for at least one week prior to retesting. Aimee Franklin DO [facility] [address] [place] [address], [place] * BODY TECHNICIAN THIN PREP PAP SCREEN IMAGED (04/03/2017 1:00 PM CDT) Case Report Gynecologic Cytology Report Case: [id number] Authorizing Provider: Estela Panda MD Collected: 04/03/2017 1300 Ordering Location: [facility] Received: 04/03/2017 1333 Clinic First Screen: Karyn Ridley Specimen: BODY TECHNICIAN ThinPrep Vial Screening, Cervical 04/10/2017 10:25 AM CDT [facility] INTERPRETATION/ RESULT NEGATIVE FOR INTRAEPITHELIAL LESION OR MALIGNANCY (NIL) (none) 04/10/2017 10:25 AM CDT [facility] IMEN ADEQUACY Satisfactory for evaluation No endocervical component seen 04/10/2017 10:25 AM CDT [facility] HPV REQUEST HPV if ASCUS 04/10/2017 10:25 AM CDT [facility] Date of LMP 03/19/2017 04/10/2017 10:25 AM CDT [facility] Last Pap Date 201304/10/2017 10:25 AM CDT [facility] Last Pap Result NIL 7 10:25 AM CDT [facility] Abnormal Pap or [place] Bx in last 5 years No 04/10/2017 10:25 AM CDT [facility] Menstrual Status Regular Periods 04/10/2017 10:25 AM CDT [facility] [place] Bx Done Today No 04/10/2017 10:25 AM CDT [facility] Additional Information None given 04/10/2017 10:25 AM CDT [facility] Automated Review Successful 04/10/2017 10:25 AM CDT [facility] Comment:Specimen processed s uccessfully by automated rotary engine assembler device, [employer] System, [employer] Note The pap test is a screening technique, not a diagnostic procedure. It is used primarily to screen for squamous cancers and precursor lesions. Published studies have shown that it is subject to both false negative and false positive results. The pap test should not be used as the sole means to diagnose or exclude pre-malignant and malignant lesions. Interpreted at [facility] ([facility], [facility], [facility], [facility], [facility], [facility], Former[facility]) 04/10/2017 10:25 AM CDT [facility] Other (Cervical) 04/03/2017 1:00 PM CDT 04/03/2017 1:33 PM CDT Estela Panda MD PATHOLOGY/CYTOLOGY [facility] [address] [place] [address], [place] from Last 3 Months or Most Recently Relevant to Health Maintenance Care Teams Pipe Bending Machine Operator Relationship Specialty Start Date End Date Pcp, No . PCP - General 07/31/23
== END 2024-07-12 02:53 | disposition home or self-care (01) ==
PROVIDERS: Emergency Provider Family Medicine
DX: K52.9 Noninfective gastroenteritis and colitis, unspecified (principal); Z33.1 Pregnant state, incidental
CPT/HCPCS: 99283; A9270; J7030